=== PATIENT | female | born 1985 | race Caucasian/White ===

== ENCOUNTER 2022-03-31 08:03 | Inpatient (IN) ==
[2022-03-31] MEDS ORDERED: OXYTOCIN 30 UNITS/500 ML BAG IV PRN (10:31)
[2022-03-31] MEDS ORDERED: miSOPROStoL 200 MCG TAB PV ONE (10:31)
[2022-03-31] MEDS ORDERED: LIDOCAINE 1% LOCAL 20 ML VIAL INFIL PRN (10:31)
[2022-03-31 11:01] LABS: Hemoglobin 12.1 g/dl (12.0-16.0); Mean Corpuscular Hemoglobin 29.5 pg (25.0-34.0); Mean Corpuscular Hgb Conc 33.6 g/dL (32.0-36.0); Mean Corpuscular Volume 87.8 fL (80.0-100.0); Platelet Count 151 K/uL (130-400); RDW Coefficient of Variation 12.9 % (11.5-14.5); RDW Standard Deviation 41.7 fL (36.4-46.3); White Blood Count 7.88 K/ul (4.8-10.8)
[2022-03-31] MEDS ORDERED: ACETAMINOPHEN 325 MG TAB ONE (11:22)
--- NOTE | 2022-03-31 11:29 | History & Physical Report ---
Date of Service March 31, 2022 Assessment & Plan (1) demise before 20 weeks with retention of fetus: Plan: Cytotec for induction Admission and Anticipated Discharge Date Admission Date: March 31, 2022 History of Present Illness Chief Complaint: demise 15.3 weeks Primary Care Provider: DEBBIE PCP 36 F [id number] at 15.3 weeks found to have IUFD on routine ultrasound Allergies Allergy/AdvReac Type Severity Reaction Status Date / Time minocycline Allergy Intermediate RASH Verified 02/26/20 01:59 Home Medications Medication Instructions Recorded Confirmed Type vitamins-iron fumarate 65 1 tab PO DAILY 03/30/22 03/31/22 History mg iron-folic acid 1 mg tablet Patient History Surgical History History of bilateral tubal ligation 2014 History of cholecystectomy 2020 History of reversal of tubal ligation 10-22 Family History Grandmother (Maternal) Cancer Diabetes Hypertension Grandfather (Paternal) Cancer Social History Smoking Status: Former smoker Second Hand Exposure: Yes; Hx Alcohol Use: No Hx Substance Use: No Preferred Language: Guamanian Communication Ability: Effective Packaging Machine Operator Required: No Beliefs That Will Affect Care: None marital status: Single Current Living Situation: Family and Significant Other Other Information That Helps Us Care for You: No Feels Safe at Home: Yes Safety Concerns: Feels Safe At This Time Assistive Devices: None 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 followed by tuabl reversal Review of Systems All systems reviewed & are unremarkable except as noted in HPI & below Physical Exam Constitutional: WD/WN, vitals as above Respiratory: normal respiratory effort, lungs clear to auscultation Gastrointestinal (Abdomen): normal bowel sounds, soft, nontender, no hepatosplenomegaly Inspection/Auscultation: abdomen normal to inspection Musculoskeletal: Extremities: extremities normal to inspection Skin: no rashes, warm and dry Neurologic: patellar DTR's 2+ bilat, sensation intact Psychiatric: A+Ox3, euthymic affect Genitourinary: no vaginal lesions, no adnexal mass Manual OB Exam: + cervical dilation and + cervical effacement (cervix long/closed and thick) Cytotec 600 mcg placed vaginally Results & Data ([facility]) Vital Signs (Past 12 Hours) Vital Signs Temp Pulse Resp BP 03/31/22 08:46 36.8 C 20 03/31/22 08:19 36.8 C 67 20 109/60 Laboratory Results Laboratory Results - last 48 hr 03/31/22 10:49 WBC 7.88 RBC 4.10 Hgb 12.1 Hct 36.0 MCV 87.8 MCH 29.5 MCHC 33.6 RDW Std Deviation 41.7 RDW Coeff of Avelino 12.9 Plt Count 151 MPV 11.0 Code Status & VTE Plan VTE Prophylaxis Plan VTE Prophylaxis will be ordered: No
[2022-03-31] MEDS ORDERED: BUTORPHANOL TARTRATE 1 MG/ML VIAL ONE (15:31)
[2022-03-31] MEDS: LACTATED RINGER'S 1,000 ML IV PRN ×2 (15:37→23:15)
[2022-03-31] MEDS ORDERED: BUTORPHANOL TARTRATE 1 MG/ML VIAL IV PRN (18:00)
[2022-03-31] MEDS ORDERED: miSOPROStoL 200 MCG TAB PO SCH (18:00)
[2022-03-31] MEDS: ACETAMINOPHEN 325 MG TAB PO PRN (18:51)
[2022-03-31] MEDS ORDERED: miSOPROStoL 200 MCG TAB PV STA (21:43)
--- NOTE | 2022-03-31 22:27 | Delivery Summary ---
Vaginal Delivery Summary Date of Service March 31, 2022 Vaginal Delivery Summary Delivery Note Patient spontaneously delivered a stillborn male fetus 15.3 weeks. No obvious congenital malformations noted. Placenta not delivered and after waiting about 45 minutes still no placenta. Cytotec 600 mcg placed vaginally and no placenta delivered. Speculum exam done to try and see if placenta could be removed but numerous clots noted and unable to fully grasp placenta to remove safely. At this point I consented patient for D&C. Will call anesthesia stat to bring patient to OR for removal of placenta. Final sponge and instrument count are correct. EBL 350 ml. Mom stable.
[2022-03-31] MEDS ORDERED: CITRIC ACID/SODIUM CITRATE 15 ML UDC ONE (22:47)
[2022-03-31] MEDS ORDERED: ONDANSETRON INJ 2 MG/ML 2 ML VIAL ONE ×2 (23:10→23:52)
[2022-03-31] MEDS ORDERED: PROPOFOL IV EMULSION 10 MG/ML 20 ML VIAL IV ONE (23:10)
[2022-03-31] MEDS ORDERED: fentaNYL citrate 100 MCG/2 ML VIAL ONE (23:10)
--- NOTE | 2022-03-31 23:12 | Anesthesiology Consultation ---
Date of Service March 31, 2022 Assessment & Plan ASA ASA2E Proposed Anesthesia Anesthesia Type: General Risk / Benefits Reviewed With: PT / POA / Parent / Guardian, Accepts Plan and Informed Consent Obtained Additional Comments: pt 15 weeks s/p demise History Surgery Operation Date: 03/31/22 22:20 Proposed Procedures p Dilatation and Curettage - Ghanshyam Fulton MD Height/Weight Height: 5 ft 4 in Weight: 67.132 kg Allergies Allergy/AdvReac Type Severity Reaction Status Date / Time minocycline Allergy Intermediate RASH Verified 02/26/20 01:59 Medications Home Medications Medication Instructions Recorded Confirmed Last Taken vitamins-iron fumarate 65 1 tab PO DAILY 03/30/22 03/31/22 03/28/22 21:00 mg iron-folic acid 1 mg tablet Active Medications Generic Name Dose Route Start Last Admin Trade Name Freq PRN Reason Stop Dose Admin Acetaminophen 650 mg 03/31/22 11:24 03/31/22 18:51 Acetaminophen 325 Mg Tab PO 04/30/22 11:23 650 mg Q4H PRN Administration Headache or Pain Oxytocin 30 units in 500 mls @ 333.333 mls/hr 03/31/22 10:31 03/31/22 20:42 Pitocin IV 04/30/22 10:30 20 units/hr .Q1H30M PRN 333.3 mls/hr Bleeding Control Administration Protocol 20 UNITS/HR Lactated Ringer's 1,000 mls @ 125 mls/hr 03/31/22 10:31 03/31/22 15:37 Lr IV 04/02/22 10:30 125 mls/hr .Q8H PRN Administration L&D Protocol Protocol NPO Date Last Intake of Fluids: 03/31/22 Time Last Intake of Fluids: 18:00 Date Last Intake of Solids: 03/31/22 Time Last Intake of Solids: 00:00 Exercise / Class Metabolic Activity II 4-5 Yardwork/Stairs/Walk up hill Past Family History Family History Grandmother (Maternal) Cancer Diabetes Hypertension Grandfather (Paternal) Cancer Past Surgical History Surgical History History of bilateral tubal ligation 2014 History of cholecystectomy 2020 History of reversal of tubal ligation 3-22 Past Anesthesia History No Hx of Anesthesia Complications and No Family Hx of Anesthesia Complications History of PONV No Hx of PONV and No Hx of Motion Sickness Social History Smoking Status: Former smoker Hx Alcohol Use: No Hx Substance Use: No Review of Systems denies fever/cough/ colds/ chest pain/ SOB/ SHAYLEE denies SHAYLEE Physical Exam Vital Signs Last Vital Signs Temp 37.3 C 03/31/22 21:05 Pulse 88 03/31/22 23:00 Resp 16 03/31/22 21:05 BP 114/56 L 03/31/22 23:00 O2 Del Method 03/31/22 19:30 ENMT Mouth: no TMJ abnormality and no dentition abnormality Thyromental Distance: > or= 3.5 Finger Breadths Mallampati Class: II Neck neck extension not limited Respiratory normal respiratory effort; no respiratory distress Auscultation: lungs clear to auscultation bilaterally Cardiovascular Rate/Rhythm: regular rate and regular rhythm Neurologic moves all extremities Psychiatric Orientation: alert and oriented x 3 Testing Laboratory Results 03/31/22 10:49
[2022-03-31] MEDS ORDERED: ceFAZolin 2000MG 2,000 MG/15 ML SYR IV STA (23:21)
[2022-03-31] MEDS ORDERED: MIDAZOLAM HCL 1 MG/ML 2ML VIAL ONE (23:39)
[2022-03-31] MEDS ORDERED: ePHEDrine sulfate 50 MG/ML SYR ONE (23:41)
[2022-03-31] MEDS ORDERED: PHENYLEPHRINE 100MCG/ML 5ML SYR ONE (23:41)
[2022-03-31] MEDS ORDERED: miSOPROStoL 200 MCG TAB ONE ×2 (23:50→23:51)
[2022-03-31] MEDS ORDERED: OXYTOCIN 10 UNITS/ML VIAL ONE (23:52)
[2022-03-31] MEDS ORDERED: ceFAZolin 330 MG/ML 1 GM VIAL ONE (23:52)
[2022-04-01] MEDS ORDERED: miSOPROStoL 200 MCG TAB PR ONE (00:03)
--- NOTE | 2022-04-01 00:09 | Post Operative Brief Note ---
Immediate Post Op Note v1 Date of Surgery April 01, 2022 Pre & Post Diagnosis Operation Date: 03/31/22 22:20 <No data on this case meets the specified criteria> I identified the patient and participated in the time-out.: Yes Procedure Operation Date: 03/31/22 22:20 <No data on this case meets the specified criteria> Surgeon Ghanshyam Fulton MD Cloth Boil Off Machine Operator none Estimated Blood Loss 100 Findings Consistent with Post-Op Diagnosis products of conception Fluids LR Specimens products of conception Drains Todd Catheter Complications none Disposition Accompanied Patient To Recovery: Yes Overlapping Procedure I was present for: the critical portions of procedure. I was immediately available: during the entire case. Back up surgeon: was not required during procedure.
[2022-04-01] MEDS ORDERED: HYDROmorphone INJ 2 MG/ML SYR/VIAL IV PRN (00:12)
[2022-04-01] MEDS ORDERED: fentaNYL citrate 100 MCG/2 ML VIAL IV PRN (00:12)
[2022-04-01] MEDS ORDERED: ATROPINE SULFATE 0.1 MG/ML 10ML SYR IV PRN (00:12)
[2022-04-01] MEDS ORDERED: ONDANSETRON INJ 2 MG/ML 2 ML VIAL IV PRN (00:12)
[2022-04-01] MEDS ORDERED: ePHEDrine sulfate 50 MG/ML AMP IV PRN (00:12)
[2022-04-01] MEDS ORDERED: IBUPROFEN 600 MG TAB PO PRN (00:30)
[2022-04-01] MEDS ORDERED: ACETAMINOPHEN 325 MG TAB PO PRN (00:30)
[2022-04-01] MEDS ORDERED: bisacodyL 10 MG SUPP PR PRN (00:30)
[2022-04-01] MEDS ORDERED: BENZOCAINE 20% AER SPR 82.5 GM CAN EXT PRN (00:30)
[2022-04-01] MEDS ORDERED: DIPHTHERIA/TETANUS/PERTUSSIS 0.5 ML SYR/VIAL IM ONE (00:30)
[2022-04-01] MEDS ORDERED: HYDROCORTISONE ACETATE 25 MG SUPP PR PRN (00:30)
[2022-04-01] MEDS ORDERED: OXYTOCIN 30 UNITS/500 ML BAG IV PRN (00:30)
--- NOTE | 2022-04-01 00:45 | Anesthesiology Progress Note ---
Date of Service April 01, 2022 Anesthesia Post Procedure Vital Signs Vital Signs: Temp Pulse Resp BP Pulse Ox O2 Del Method 03/31/22 19:30 37.3 C 16 Room Air 03/31/22 08:46 36.8 C 20 04/01/22 00:41 84 100 04/01/22 00:40 85 106/59 L 04/01/22 00:36 93 H 100 04/01/22 00:35 93 H 110/58 L 04/01/22 00:31 110 H 97 04/01/22 00:27 113 H 92 04/01/22 00:26 113 H 99 04/01/22 00:21 94 H 100 04/01/22 00:20 90 113/60 04/01/22 00:13 113 H 113/69 04/01/22 00:11 117 H 112/82 03/31/22 23:00 88 03/31/22 23:00 114/56 L 03/31/22 22:45 96 H 03/31/22 22:45 115/65 03/31/22 22:30 75 03/31/22 22:30 108/60 03/31/22 22:15 93 H 03/31/22 22:15 108/68 03/31/22 22:00 78 03/31/22 22:00 106/58 L 03/31/22 21:45 70 03/31/22 21:45 109/56 L 03/31/22 21:30 82 03/31/22 21:30 116/66 03/31/22 21:15 87 03/31/22 21:15 113/67 03/31/22 21:05 16 03/31/22 21:05 37.3 C 16 03/31/22 21:01 85 03/31/22 21:01 115/62 03/31/22 20:30 72 03/31/22 20:30 116/66 03/31/22 19:44 81 03/31/22 19:44 116/75 03/31/22 15:33 77 03/31/22 15:33 20 123/74 03/31/22 13:23 86 03/31/22 13:23 101/57 L 03/31/22 08:19 36.8 C 67 20 109/60 Transfer of Care Handoff Completed per policy Notes Mental Status: alert / awake / arousable and participated in evaluation Patient Amnestic to Procedure: Yes Nausea / Vomiting: adequately controlled Pain: adequately controlled Airway Patency, RR, SpO2: stable & adequate BP & HR: stable & adequate Hydration State: stable & adequate Anesthetic Complications: no major complications apparent
[2022-04-01 01:28] LABS: Hematocrit (blood only) 30.6 % (34.1-44.9); Hemoglobin 10.1 g/dl (12.0-16.0); Mean Corpuscular Hemoglobin 29.6 pg (25.0-34.0); Mean Corpuscular Volume 89.7 fL (80.0-100.0); RDW Coefficient of Variation 12.7 % (11.5-14.5); RDW Standard Deviation 41.2 fL (36.4-46.3); Red Blood Count 3.41 M/uL (3.93-5.22); White Blood Count 10.05 K/ul (4.8-10.8)
[2022-04-01 02:03] LABS: Mean Platelet Volume 10.8 fL (9.4-12.3); Platelet Count 132 K/uL (130-400)
[2022-04-01 02:25] LABS: Platelet Estimate Normal (Normal)
--- NOTE | 2022-04-01 07:19 | Operative Report (OR) ---
DATE OF SURGERY: 04/01/2022. PREOPERATIVE DIAGNOSIS: Retained placenta. POSTOPERATIVE DIAGNOSIS: Retained placenta. PROCEDURE: Dilation and curettage. SURGEON: Ghanshyam Fulton MD. MECHANICAL SYSTEMS CONTROL ENGINEER: None. COMPLICATIONS: None. FINDINGS: Products of conception. DRAINS: Todd. ESTIMATED BLOOD LOSS: 100 mL. TOTAL FLUIDS: 900 mL. CLINICAL HISTORY: The patient is a 36-year-old female, para 5-0-1-5, who presented with 15.3-week in trauterine demise. The patient received Cytotec x2 doses and then delivered spontaneously a st illborn male. Placenta was not delivered. The patient continued to have some bleeding. An attempt was made to remove the placenta with a ring forceps, which was not successful. Some tissue was remov ed and large clots were evacuated. The patient was brought to the OR for a D and C. DESCRIPTION OF PROCEDURE: Under satisfactory general anesthesia, the patient was prepped and draped in the usual sterile fashion. Timeout was called. Antibiotics were given. Weighted speculum was pl aced in the posterior vault of the vagina. Single Allis clamp was placed on the anterior lip of the cervix. Cervix was then dilated with Hegar dilators and then sharp curette was then used curetting o ut minimal amounts of tissue, which was submitted to pathology. No active bleeding was noted. Pitoc in was started in the IV. All remaining instruments were accounted for. The remaining instruments w ere then removed. At the end of the procedure, 1000 mcg of Cytotec was placed rectally to control ble eding. The patient was then placed supine on a stretcher at the end of the procedure and taken to re covery room in stable condition. Job ID: [id number]
--- NOTE | 2022-04-01 07:40 | Obstetrical Progress Note ---
Date of Service April 01, 2022 Assessment & Plan Admission and Anticipated Discharge Date Admission Date: March 31, 2022 Subjective Patient is seen and examined. She feels well, no complaints. Ambulating without dizziness Voiding without difficulty Tolerating regular diet with out N&V Bleeding is minimal No fever/ chills/ CP/ SOB/ dizziness/N&V/ Leg pain Vital Signs Temp Pulse Resp BP Pulse Ox 04/01/22 06:24 36.6 C 16 04/01/22 07:38 88 102/56 L 04/01/22 06:21 82 96/52 L 04/01/22 04:41 84 96 04/01/22 04:36 101 H 96 04/01/22 04:31 86 96 04/01/22 04:27 86 95/53 L 04/01/22 04:26 85 96 04/01/22 04:21 100 H 97 04/01/22 04:16 89 95 04/01/22 04:11 91 H 96 04/01/22 04:06 88 96 04/01/22 04:01 90 96 04/01/22 03:56 101 H 96 04/01/22 03:57 95 H 95/50 L 04/01/22 03:51 98 H 96 04/01/22 03:46 96 H 96 04/01/22 03:41 88 96 04/01/22 03:36 84 96 04/01/22 03:31 87 96 04/01/22 03:26 95 H 96 04/01/22 03:27 93 H 96/51 L 04/01/22 03:21 92 H 96 04/01/22 03:16 97 H 96 04/01/22 03:11 97 H 96 04/01/22 03:06 93 H 96 04/01/22 03:01 90 96 04/01/22 02:57 90 96/51 L 04/01/22 02:56 91 H 96 04/01/22 02:51 93 H 96 04/01/22 02:46 87 96 04/01/22 02:41 88 95 04/01/22 02:36 83 95 04/01/22 02:31 92 H 96 04/01/22 02:26 109 H 97 04/01/22 02:21 85 95 04/01/22 02:20 89 100/57 L 04/01/22 02:16 94 H 97 04/01/22 02:11 88 98 04/01/22 02:10 84 98/57 L 04/01/22 02:06 96 H 98 04/01/22 02:01 94 H 98 04/01/22 02:00 93 H 100/56 L 04/01/22 01:56 85 98 04/01/22 01:51 94 H 98 04/01/22 01:50 96 H 98/53 L 04/01/22 01:46 98 H 100 04/01/22 01:41 107 H 100 04/01/22 01:40 89 100/57 L 04/01/22 01:36 85 98 04/01/22 01:31 84 100 04/01/22 01:30 85 100/55 L 04/01/22 01:26 93 H 99 04/01/22 01:21 88 100 04/01/22 01:20 89 104/59 L 04/01/22 01:16 95 H 100 04/01/22 01:11 75 96 04/01/22 01:10 75 102/50 L 04/01/22 01:06 69 97 04/01/22 01:01 70 97 04/01/22 01:00 71 104/57 L 04/01/22 00:56 85 99 04/01/22 00:51 79 97 04/01/22 00:50 77 103/59 L 04/01/22 00:46 83 98 04/01/22 00:41 84 100 04/01/22 00:40 85 106/59 L 04/01/22 00:36 93 H 100 04/01/22 00:35 93 H 110/58 L 04/01/22 00:31 110 H 97 04/01/22 00:27 113 H 92 04/01/22 00:26 113 H 99 04/01/22 00:21 94 H 100 04/01/22 00:20 90 113/60 04/01/22 00:13 113 H 113/69 04/01/22 00:11 117 H 112/82 03/31/22 23:00 88 03/31/22 23:00 114/56 L 03/31/22 22:45 96 H 03/31/22 22:45 115/65 03/31/22 22:30 75 03/31/22 22:30 108/60 03/31/22 22:15 93 H 03/31/22 22:15 108/68 03/31/22 22:00 78 03/31/22 22:00 106/58 L 03/31/22 21:45 70 03/31/22 21:45 109/56 L 03/31/22 21:30 82 03/31/22 21:30 116/66 03/31/22 21:15 87 03/31/22 21:15 113/67 03/31/22 21:05 16 03/31/22 21:05 37.3 C 16 03/31/22 21:01 85 03/31/22 21:01 115/62 03/31/22 20:30 72 03/31/22 20:30 116/66 03/31/22 19:44 81 03/31/22 19:44 116/75 Lab Results 03/31/22 04/01/22 Range/Units 10:49 00:38 WBC 7.88 10.05 (4.8-10.8) K/ul RBC 4.10 3.41 L (3.93-5.22) M/uL Hgb 12.1 10.1 L (12.0-16.0) g/dl Hct 36.0 30.6 L (34.1-44.9) % MCV 87.8 89.7 (80.0-100.0) fL MCH 29.5 29.6 (25.0-34.0) pg MCHC 33.6 33.0 (32.0-36.0) g/dL RDW Std Deviation 41.7 41.2 (36.4-46.3) fL RDW Coeff of Avelino 12.9 12.7 (11.5-14.5) % Plt Count 151 132 (130-400) K/uL MPV 11.0 10.8 (9.4-12.3) fL Platelet Estimate Normal (Normal) PE: General: Alert, orientedx3, NAD Abd: soft, NT, fundus firm, below Umbilicus Perineum intact, Lochia rubra minimal Ext; NT, no edema AP: 36 yo s/p for IUFD, PP D&C for retained placenta, ppd# 1 VSS Afebrile doing well Continue routine care All questions were answered Discussed when to call D/C home , f/u in office Results & Data ([facility]) Vital Signs (Past 12 Hours) Vital Signs Temp Pulse Resp BP Pulse Ox 04/01/22 06:24 36.6 C 16 04/01/22 06:21 82 96/52 L 04/01/22 04:41 84 96 04/01/22 04:36 101 H 96 04/01/22 04:31 86 96 04/01/22 04:27 86 95/53 L 04/01/22 04:26 85 96 04/01/22 04:21 100 H 97 04/01/22 04:16 89 95 04/01/22 04:11 91 H 96 04/01/22 04:06 88 96 04/01/22 04:01 90 96 04/01/22 03:56 101 H 96 04/01/22 03:57 95 H 95/50 L 04/01/22 03:51 98 H 96 04/01/22 03:46 96 H 96 04/01/22 03:41 88 96 04/01/22 03:36 84 96 04/01/22 03:31 87 96 04/01/22 03:26 95 H 96 04/01/22 03:27 93 H 96/51 L 04/01/22 03:21 92 H 96 04/01/22 03:16 97 H 96 04/01/22 03:11 97 H 96 04/01/22 03:06 93 H 96 04/01/22 03:01 90 96 04/01/22 02:57 90 96/51 L 04/01/22 02:56 91 H 96 04/01/22 02:51 93 H 96 04/01/22 02:46 87 96 04/01/22 02:41 88 95 04/01/22 02:36 83 95 04/01/22 02:31 92 H 96 04/01/22 02:26 109 H 97 04/01/22 02:21 85 95 04/01/22 02:20 89 100/57 L 04/01/22 02:16 94 H 97 04/01/22 02:11 88 98 04/01/22 02:10 84 98/57 L 04/01/22 02:06 96 H 98 04/01/22 02:01 94 H 98 04/01/22 02:00 93 H 100/56 L 04/01/22 01:56 85 98 04/01/22 01:51 94 H 98 04/01/22 01:50 96 H 98/53 L 04/01/22 01:46 98 H 100 04/01/22 01:41 107 H 100 04/01/22 01:40 89 100/57 L 04/01/22 01:36 85 98 04/01/22 01:31 84 100 04/01/22 01:30 85 100/55 L 04/01/22 01:26 93 H 99 04/01/22 01:21 88 100 04/01/22 01:20 89 104/59 L 04/01/22 01:16 95 H 100 04/01/22 01:11 75 96 04/01/22 01:10 75 102/50 L 04/01/22 01:06 69 97 04/01/22 01:01 70 97 04/01/22 01:00 71 104/57 L 04/01/22 00:56 85 99 04/01/22 00:51 79 97 04/01/22 00:50 77 103/59 L 04/01/22 00:46 83 98 04/01/22 00:41 84 100 04/01/22 00:40 85 106/59 L 04/01/22 00:36 93 H 100 04/01/22 00:35 93 H 110/58 L 04/01/22 00:31 110 H 97 04/01/22 00:27 113 H 92 04/01/22 00:26 113 H 99 04/01/22 00:21 94 H 100 04/01/22 00:20 90 113/60 04/01/22 00:13 113 H 113/69 04/01/22 00:11 117 H 112/82 03/31/22 23:00 88 03/31/22 23:00 114/56 L 03/31/22 22:45 96 H 03/31/22 22:45 115/65 03/31/22 22:30 75 03/31/22 22:30 108/60 03/31/22 22:15 93 H 03/31/22 22:15 108/68 03/31/22 22:00 78 03/31/22 22:00 106/58 L 03/31/22 21:45 70 08/29/22 21:45 109/56 L 03/31/22 21:30 82 03/31/22 21:30 116/66 03/31/22 21:15 87 03/31/22 21:15 113/67 03/31/22 21:05 16 03/31/22 21:05 37.3 C 16 03/31/22 21:01 85 03/31/22 21:01 115/62 03/31/22 20:30 72 03/31/22 20:30 116/66 03/31/22 19:44 81 03/31/22 19:44 116/75
[2022-04-01] MEDS ORDERED: FERROUS SULFATE 325 MG TAB PO SCH (08:00)
[2022-04-01] MEDS ORDERED: PRENATAL VITAMIN 1 TAB PO SCH (08:00)
[2022-04-01] MEDS ORDERED: DOCUSATE SODIUM 100 MG CAP PO SCH (08:00)
[2022-04-01] MEDS: ACETAMINOPHEN 325 MG TAB PO PRN (08:05)
[2022-04-01] MEDS ORDERED: NON-FORMULARY MEDICATION (Prenatal Vit-Iron Fum-Folic Ac 65 mg iron- 1 mg Tablet) PO SCH (09:00)
[2022-04-02] MEDS ORDERED: bisacodyL 5 MG TABEC PO SCH (20:00)
== END 2022-04-01 08:50 | disposition home or self-care (01) | DRG 770 ==
LOC: 4S1 08:03

== ENCOUNTER 2022-04-30 14:00 | Inpatient (IN) ==
[2022-04-30] MEDS ORDERED: SODIUM CHLORIDE 0.9% 1000ML 1,000 ML IV ONE (14:16)
[2022-04-30] MEDS ORDERED: ACETAMINOPHEN 1,000 MG/100 ML VIAL IV STA (14:16)
[2022-04-30 15:18] LABS: Basophils # (auto) 0.03 K/uL (0-0.2); Basophils % (auto) 0.3 %; Eosinophils # (auto) 0.03 K/uL (0-0.50); Eosinophils % (auto) 0.3 %; Hematocrit (blood only) 33.3 % (34.1-44.9); Hemoglobin 10.9 g/dl (12.0-16.0); Immature Granulocytes # (auto) 0.04 K/uL (0.00-0.02); Immature Granulocytes % (auto) 0.4 %; Lymphocytes # (auto) 1.23 K/uL (1.2-3.4); Lymphocytes % (auto) 11.4 %; Mean Corpuscular Hemoglobin 29.9 pg (25.0-34.0); Mean Corpuscular Hgb Conc 32.7 g/dL (32.0-36.0); Mean Corpuscular Volume 91.2 fL (80.0-100.0); Mean Platelet Volume 11.8 fL (9.4-12.3); Monocytes # (auto) 0.68 K/uL (0.24-0.82); Monocytes % (auto) 6.3 %; Neutrophils # (auto) 8.77 K/uL (1.4-6.5); Neutrophils % (auto) 81.3 %; Platelet Count 149 K/uL (130-400); RDW Coefficient of Variation 12.6 % (11.5-14.5); Red Blood Count 3.65 M/uL (3.93-5.22); White Blood Count 10.78 K/ul (4.8-10.8)
[2022-04-30 15:34] LABS: Appearance Urine Clear (Clear); Bacteria Urine Automated Negative (Negative); Bilirubin Urine Negative (Negative); Blood Urine 2+ (Negative); Color Urine Yellow; Epithelial Cell Urine Auto 20-30 /lpf (0-5); Glucose Urine UA Negative (Negative); Ketones Urine Negative (Negative); Leukocyte Esterase Urine 1+ (Negative); Nitrite Urine Negative (Negative); Protein Urine Negative (Negative); Specific Gravity Urine 1.018 (1.000-1.030); Urobilinogen Urine Negative (Negative); WBC Urine Automated >30 /hpf (0-5); pH Urine 8.5 (4.5-7.5)
[2022-04-30 15:35] LABS: Partial Thromboplastin Time 28.1 Seconds (21.0-31.0); Prothrombin Time 11.1 Seconds (9.0-12.0)
[2022-04-30 15:39] LABS: Albumin Level 4.1 gm/dl (3.4-5.0); BUN Creatinine Ratio 9.6 (10-20); Bilirubin Direct 0.2 mg/dl (0-0.2); Bilirubin,Total 0.5 mg/dl (0.2-1.0); Calcium 8.9 mg/dl (8.5-10.1); Creatinine Clr Calc Pharmacy 117.3 ml/min; Est GFR (African American) 122.8 ml/min; Potassium 3.2 mmol/L (3.5-5.1); Total Protein 7.2 gm/dl (6.0-8.3)
--- NOTE | 2022-04-30 15:47 | Emergency Department Note ---
History of Present Illness General Chief complaint: Referred by Doctor Stated complaint: FEVER, ABDOMINAL PAIN, SENT FROM [facility] Time Seen by Provider: 04/30/22 14:11 History of Present Illness Provider complaint: Fever abdominal pain Onset (ago): day(s) 1 Location: abdomen Radiation: non-radiation Severity: moderate Pain Consistency: + constant Maximum Pain Intensity: 7 Current Pain Intensity: 7 Quality: + stabbing, + aching, + sharp and + dull Relieved By: + none Exacerbated By: + none Associated symptoms: + fever/chills; no chest pain, no cough, no headaches, no rash, no seizure, no shortness of breath or no syncope 36-year-old female presents emergency department with fever and abdominal pain. Patient reports her symptoms began yesterday. Patient reports she was having pain in her left lower quadrant. Patient reports she recently had a miscarriage and a recent D&C done by [facility]. Patient states she went to [place] emergency department yesterday where they did an ultrasound and found her uterin e lining to be thickened and inflamed. Patient reports she has been having vaginal bleeding since having her miscarriage. The patient states that she is now passing tissue from her vagina. Patient states she has been sexually active since having her miscarriage and is not sure if she is currently . Home Medications Medication Instructions Recorded Confirmed Type vitamins-iron fumarate 65 1 tab PO DAILY 03/30/22 04/30/22 History mg iron-folic acid 1 mg tablet docusate sodium 100 mg capsule 100 mg PO BID 04/30/22 04/30/22 History (Colace) Allergies Allergy/AdvReac Type Severity Reaction Status Date / Time minocycline Allergy Intermediate RASH Verified 02/26/20 01:59 Past Med/Surg History Medical History demise before 20 weeks with retention of fetus Surgical History History of bilateral tubal ligation 2014 History of cholecystectomy 2020 History of dilatation and curettage History of reversal of tubal ligation 10-22 Family History Grandmother (Maternal) Cancer Diabetes Hypertension Grandfather (Paternal) Cancer Social History Smoking Status: Never smoker Second Hand Exposure: Yes; Hx Alcohol Use: No Hx Substance Use: No Preferred Language: Kinyarwanda Communication Ability: Effective Meat Boner And Slicer Required: No Beliefs That Will Affect Care: None marital status: Single Current Living Situation: Family and Significant Other Feels Safe at Home: Yes Assistive Devices: None Review of Systems A total of 10 systems reviewed and were otherwise negative Physical Exam Vital Signs Vital Signs - 24 hr 04/30/22 14:10 04/30/22 17:00 04/30/22 17:00 Temperature 38.6 C H Temperature Source Oral Pulse Rate 98 H 70 Pulse Rate [Finger] 80 Pulse Rhythm Regular Pulse Rhythm [Finger] Regular Pulse Strength [Finger] Normal Respiratory Rate 16 19 19 Respiratory Effort / Characteristics Non-Labored Respiratory Depth Normal Normal Respiratory Pattern Regular Blood Pressure 131/84 Blood Pressure [Left Arm] Blood Pressure [Right Arm] 138/84 Blood Pressure Mean 99 Blood Pressure Mean [Left Arm] Blood Pressure Mean [Right Arm] 102 Blood Pressure Position [Left Arm] Blood Pressure Position [Right Arm] Lying Pulse Oximetry 100 99 99 Oxygen Delivery Method Room Air Room Air Room Air Sepsis Recent Fever Within 48 Hours Yes Sepsis New/Unexplained Change in Mental Status No Sepsis Action Taken by Nursing No Action Required 04/30/22 17:57 04/30/22 18:03 Temperature 37.2 C Temperature Source Oral Pulse Rate Pulse Rate [Finger] Pulse Rhythm Pulse Rhythm [Finger] Pulse Strength [Finger] Respiratory Rate 18 Respiratory Effort / Characteristics Respiratory Depth Respiratory Pattern Blood Pressure Blood Pressure [Left Arm] 118/65 Blood Pressure [Right Arm] Blood Pressure Mean Blood Pressure Mean [Left Arm] 82 Blood Pressure Mean [Right Arm] Blood Pressure Position [Left Arm] Semi-fowlers Blood Pressure Position [Right Arm] Pulse Oximetry 99 Oxygen Delivery Method Room Air Room Air Sepsis Recent Fever Within 48 Hours Sepsis New/Unexplained Change in Mental Status Sepsis Action Taken by Nursing Physical Exam GENERAL: She is oriented to person, place, and time. She appears well-developed and well-nourished. She does not appear distressed. HENT: Exam performed. -Head: Normocephalic and atraumatic. -Right Ear: External ear normal. No mastoid tenderness. -Left Ear: External ear normal. No mastoid tenderness. -Mouth/Throat: The oropharynx is clear and moist. No trismus in the jaw. No dental abscesses or uvula swelling. No oropharyngeal exudate or tonsillar abscesses. EYES: Conjunctivae and EOM are normal. Pupils are equal, round, and reactive to light. Right eye exhibits no discharge. Left eye exhibits no discharge. No scleral icterus. NECK: Normal range of motion. Neck supple. No JVD present. No spinous process tenderness present. No carotid bruit present. No rigidity. No tracheal deviation and normal range of motion present. No Brudzinski's sign and no Kernig's sign noted. CV: Normal rate, regular rhythm, normal heart sounds and intact distal pulses. There is no peripheral edema. Palpable radial pulses bue. PULM/CHEST: Effort normal and breath sounds normal. No respiratory distress. No stridor. She has no wheezes. She has no rales. -Chest Wall: She exhibits no tenderness. ABD: The abdomen is soft. Bowel sounds are normal. She has no distension. No mass is present. There is tenderness to palpation of the left lower quadrant. There is no rebound, no guarding, no Reyes's sign and no tenderness at McBurney's point. Rovsig negative MUSC/SKEL: Normal range of motion. There is no peripheral edema, tenderness or deformity. LYMPH: No cervical adenopathy. NEURO: She is alert and oriented to person, place, and time. She has normal strength. No cranial nerve deficit or sensory deficit. Coordination and gait normal. GCS eye subscore is 4. GCS verbal subscore is 5. GCS motor subscore is 6. Cerebellar tests wnl. SKIN: Skin is warm and dry. She is not diaphoretic. PSYCH: She has a normal mood and affect. Behavior is normal. Judgment and thought content normal. Course Course 1411: The patient was evaluated in room C11. A complete history and physical exam was performed Cardiac monitoring: An order was placed for continuous cardiac monitoring. The monitor shows a rate of 90 with sinus rhythm EMR reviewed. Patient had a D&C done by Dr. Paige on April 01, 2022 for retained placenta. 1426: Spoke with Dr. Sarah Simmons MECHANICAL CAD DESIGNER both he and I feel it is unlikely that the patient still has retained products for almost a month now. Will obtain lab work and CT imaging. 1708: Labs show hemoglobin 10.9. Potassium 3.2. Exam done with female nursing senior telecommunications consultant Clary at bedside and assisting showed no vaginal bleeding but did show some scant vaginal discharge. Patient reports she has not concerned about STD. CT imaging shows enlarged heterogeneous uterus with hyperdense material in the endometrial canal suggestive of blood clot. Discussed the case with Dr. Smith who states he will be down to evaluate the patient. 1738: Nursing states that the patient is being taken to the OR with Dr. Smith Administered Medications Discontinued Medications Acetaminophen (Ofirmev) 1,000 mg in 100 mls @ 400 mls/hr IV NOW STA Stop: 04/30/22 14:30 Last Infusion: 04/30/22 15:55 Dose: 0 mls/hr Documented By: Admin: 04/30/22 15:07 Dose: 400 mls/hr Documented By: DONA(2) Sodium Chloride (Nss 1000ml) 1,000 mls @ 999 mls/hr IV .Q1H1M ONE Stop: 04/30/22 15:16 Last Infusion: 04/30/22 15:53 Dose: 0 mls/hr Documented By: Admin: 04/30/22 15:07 Dose: 999 mls/hr Documented By: DONA(2) Ioversol (Ioversol 350 Mg 100ml Prefilled Syringe) 91 ml IV ONCE ONE Stop: 04/30/22 16:08 Last Admin: 04/30/22 16:08 Dose: 91 ml Documented By: SAMANTA Medical Decision Making Laboratory Data Result diagrams: 04/30/22 15:00 04/30/22 15:00 Lab Results 04/30/22 04/30/22 04/30/22 Range/Units 15:00 15:00 15:00 WBC 10.78 (4.8-10.8) K/ul RBC 3.65 L (3.93-5.22) M/uL Hgb 10.9 L (12.0-16.0) g/dl Hct 33.3 L (34.1-44.9) % MCV 91.2 (80.0-100.0) fL MCH 29.9 (25.0-34.0) pg MCHC 32.7 (32.0-36.0) g/dL RDW Std Deviation 42.0 (36.4-46.3) fL RDW Coeff of Avelino 12.6 (11.5-14.5) % Plt Count 149 (130-400) K/uL MPV 11.8 (9.4-12.3) fL Immature Gran % (Auto) 0.4 % Neut % (Auto) 81.3 % Lymph % (Auto) 11.4 % [place] % (Auto) 6.3 % Eos % (Auto) 0.3 % Baso % (Auto) 0.3 % Neut # (Auto) 8.77 H (1.4-6.5) K/uL Lymph # (Auto) 1.23 (1.2-3.4) K/uL [place] # (Auto) 0.68 (0.24-0.82) K/uL Eos # (Auto) 0.03 (0-0.50) K/uL Baso # (Auto) 0.03 (0-0.2) K/uL Immature Gran # (Auto) 0.04 H (0.00-0.02) K/uL PT 11.1 (9.0-12.0) Seconds INR 1.0 (0.9-1.1) APTT 28.1 (21.0-31.0) Seconds PTT Ratio 1.0 Sodium 137 (136-145) mmol/L Potassium 3.2 L (3.5-5.1) mmol/L Chloride 106 (98-107) mmol/L Carbon Dioxide 22 (21-32) mmol/L Anion Gap 9 (3-11) BUN 7 (6-23) mg/dl Creatinine 0.73 (0.6-1.2) mg/dl Est Cr Clr Drug Dosing 117.3 ml/min Est GFR ( Amer) 122.8 ml/min Est GFR (Non-Af Amer) 106.0 ml/min BUN/Creatinine Ratio 9.6 L (10-20) Glucose 95 (70-99(Fasting)) mg/dl Calcium 8.9 (8.5-10.1) mg/dl Total Bilirubin 0.5 (0.2-1.0) mg/dl Direct Bilirubin 0.2 (0-0.2) mg/dl AST 16 (13-39) U/L ALT 15 (7-52) U/L Alkaline Phosphatase 57 (34-104) U/L Total Protein 7.2 (6.0-8.3) gm/dl Albumin 4.1 (3.4-5.0) gm/dl Lipase 5 L (11-82) U/L Urine Color Urine Appearance (Clear) Urine pH (4.5-7.5) Ur Specific [place] (1.000-1.030) Urine Protein (Negative) Urine Glucose (UA) (Negative) Urine Ketones (Negative) Urine Blood (Negative) Urine Nitrite (Negative) Urine Bilirubin (Negative) Urine Urobilinogen (Negative) Ur Leukocyte Esterase (Negative) Urine WBC (Auto) (0-5) /hpf Urine RBC (Auto) (0-4) /hpf U Hyaline Cast (Auto) (0-5) /lpf U Epithel Cells (Auto) (0-5) /lpf Urine Bacteria (Auto) (Negative) POC Ur Test (NEG) 04/30/22 04/30/22 Range/Units 15:00 15:00 WBC (4.8-10.8) K/ul RBC (3.93-5.22) M/uL Hgb (12.0-16.0) g/dl Hct (34.1-44.9) % MCV (80.0-100.0) fL MCH (25.0-34.0) pg MCHC (32.0-36.0) g/dL RDW Std Deviation (36.4-46.3) fL RDW Coeff of Avelino (11.5-14.5) % Plt Count (130-400) K/uL MPV (9.4-12.3) fL Immature Gran % (Auto) % Neut % (Auto) % Lymph % (Auto) % [place] % (Auto) % Eos % (Auto) % Baso % (Auto) % Neut # (Auto) (1.4-6.5) K/uL Lymph # (Auto) (1.2-3.4) K/uL [place] # (Auto) (0.24-0.82) K/uL Eos # (Auto) (0-0.50) K/uL Baso # (Auto) (0-0.2) K/uL Immature Gran # (Auto) (0.00-0.02) K/uL PT (9.0-12.0) Seconds INR (0.9-1.1) APTT (21.0-31.0) Seconds PTT Ratio Sodium (136-145) mmol/L Potassium (3.5-5.1) mmol/L Chloride (98-107) mmol/L Carbon Dioxide (21-32) mmol/L Anion Gap (3-11) BUN (6-23) mg/dl Creatinine (0.6-1.2) mg/dl Est Cr Clr Drug Dosing ml/min Est GFR ( Amer) ml/min Est GFR (Non-Af Amer) ml/min BUN/Creatinine Ratio (10-20) Glucose (70-99(Fasting)) mg/dl Calcium (8.5-10.1) mg/dl Total Bilirubin (0.2-1.0) mg/dl Direct Bilirubin (0-0.2) mg/dl AST (13-39) U/L ALT (7-52) U/L Alkaline Phosphatase (34-104) U/L Total Protein (6.0-8.3) gm/dl Albumin (3.4-5.0) gm/dl Lipase (11-82) U/L Urine Color Yellow Urine Appearance Clear (Clear) Urine pH 8.5 H (4.5-7.5) Ur Specific [place] 1.018 (1.000-1.030) Urine Protein Negative (Negative) Urine Glucose (UA) Negative (Negative) Urine Ketones Negative (Negative) Urine Blood 2+ H (Negative) Urine Nitrite Negative (Negative) Urine Bilirubin Negative (Negative) Urine Urobilinogen Negative (Negative) Ur Leukocyte Esterase 1+ H (Negative) Urine WBC (Auto) >30 H (0-5) /hpf Urine RBC (Auto) 10-30 H (0-4) /hpf U Hyaline Cast (Auto) 1-5 (0-5) /lpf U Epithel Cells (Auto) 20-30 H (0-5) /lpf Urine Bacteria (Auto) Negative (Negative) POC Ur Test NEG (NEG) Imaging Data Radiologist's Impression: Abdomen/Pelvis CT 04/30/22 14:[address] WITH IV CONTRAST CT DOSE: 282.77 mGy.cm HISTORY: Acute left lower quadrant abdominal pain. Vaginal bleeding with recent demise, D&C. fever llq pain TECHNIQUE: Multiaxial CT images of the abdomen and pelvis were performed following the IV administration of 91 cc of Optiray, A dose lowering technique was utilized adhering to the principles of ALARA. COMPARISON STUDY: Pelvic ultrasound 03/30/2022 FINDINGS: Minimal dependent subsegmental bibasilar atelectasis. There is no pneumatosis or pneumoperitoneum. Unremarkable spleen, pancreas and adrenal glands. Cholecystectomy. Unremarkable liver. Patency of the hepatic and portal veins. Unremarkable kidneys. Exophytic subcentimeter hypodense lesion of the superior pole right kidney is too small to characterize, likely a cyst. No hydronephrosis. Unremarkable urinary bladder. Enlarged heterogeneous uterus. Endometrium is distended and filled with hyperdense material measuring up to approximately 5 cm. There is mild congestion of the pelvic vasculature with trace free pelvic fluid. Aorta and IVC are unremarkable. There is no lymphadenopathy identified. No bowel obstruction or bowel wall thickening. Normal appendix. Unremarkable soft tissues. No acute fracture. IMPRESSION: 1. No bowel obstruction or bowel wall thickening. Normal appendix. 2. Enlarged heterogeneous uterus in this patient with history of reported recent D&C. Hyperdense material within the endometrial canal is suggestive of blood clot. Follow-up with serial quantitative beta hCG recommended to exclude retained products of conception. ACT 112: Negative or not required by law. The above report was generated using voice recognition software. It may contain grammatical, syntax or spelling errors. Electronically signed by: Rafal Greene M.D. 04/30/2022 4:24 PM [facility] Narrative 1411: The patient was evaluated in room C11. A complete history and physical exam was performed Cardiac monitoring: An order was placed for continuous cardiac monitoring. The monitor shows a rate of 90 with sinus rhythm EMR reviewed. Patient had a D&C done by Dr. Paige on April 01, 2022 for retained placenta. 1426: Spoke with Dr. Sarah Simmons MECHANICAL CAD DESIGNER both he and I feel it is unlikely that the patient still has retained products for almost a month now. Will obtain lab work and CT imaging. 1708: Labs show hemoglobin 10.9. Potassium 3.2. Exam done with female nursing senior telecommunications consultant Clary at bedside and assisting showed no vaginal bleeding but did show some scant vaginal discharge. Patient reports she has not concerned about STD. CT imaging shows enlarged heterogeneous uterus with hyperdense material in the endometrial canal suggestive of blood clot. Discussed the case with Dr. Smith who states he will be down to evaluate the patient. 1738: Nursing states that the patient is being taken to the OR with Dr. Smith Impression & Plan Retained products of conception Discharge Plan Visit Data Chief Complaint: Referred by Doctor Stated Complaint: FEVER, ABDOMINAL PAIN, SENT FROM [facility] ED Provider: Ismael Tello Discharge Problem: Retained products of conception Patient Disposition: Admitted As Inpatient Discharge Instructions Interventions: ED Discharge Assessment Last Done: 04/30/22 17:57 Forms Stand Alone Forms: [facility] Design A Prescriptions Prescriptions: No Action docusate sodium [Colace] 100 mg Capsule 100 mg PO BID vit-iron fum-folic ac 65 mg iron- 1 mg Tablet 1 tab PO DAILY Referrals Referrals: Oleksandr Rivas MD [Primary Care Provider] -
[2022-04-30] MEDS ORDERED: IOVERSOL 350 MG 100mL Prefilled Syringe IV ONE (16:07)
--- NOTE | 2022-04-30 16:26 | CT Scan Report ---
ABDOMEN AND PELVIS CT WITH IV CONTRAST CT DOSE: 282.77 mGy.cm HISTORY: Acute left lower quadrant abdominal pain. Vaginal bleeding with recent demise, D&C. fe broderick llq pain TECHNIQUE: Multiaxial CT images of the abdomen and pelvis were performed following the IV administrat ion of 91 cc of Optiray, A dose lowering technique was utilized adhering to the principles of ALARA. COMPARISON STUDY: Pelvic ultrasound 03/30/2022 FINDINGS: Minimal dependent subsegmental bibasilar atelectasis. There is no pneumatosis or pneumoperi toneum. Unremarkable spleen, pancreas and adrenal glands. Cholecystectomy. Unremarkable liver. Patenc y of the hepatic and portal veins. Unremarkable kidneys. Exophytic subcentimeter hypodense lesion of the superior pole right kidney is t oo small to characterize, likely a cyst. No hydronephrosis. Unremarkable urinary bladder. Enlarged he terogeneous uterus. Endometrium is distended and filled with hyperdense material measuring up to appr oximately 5 cm. There is mild congestion of the pelvic vasculature with trace free pelvic fluid. Aort a and IVC are unremarkable. There is no lymphadenopathy identified. No bowel obstruction or bowel wall thickening. Normal appendix. Unremarkable soft tissues. No acute f racture. IMPRESSION: 1. No bowel obstruction or bowel wall thickening. Normal appendix. 2. Enlarged heterogeneous uterus in this patient with history of reported recent D&C. Hyperdense mate rial within the endometrial canal is suggestive of blood clot. Follow-up with serial quantitative bet a hCG recommended to exclude retained products of conception. ACT 112: Negative or not required by law. The above report was generated using voice recognition software. It may contain grammatical, syntax o r spelling errors. Electronically signed by: Rafal Greene M.D. 04/30/2022 4:24 PM
[2022-04-30] MEDS ORDERED: ATROPINE SULFATE 0.1 MG/ML 10ML SYR IV PRN (17:30)
[2022-04-30] MEDS ORDERED: fentaNYL citrate 100 MCG/2 ML VIAL IV PRN (17:30)
[2022-04-30] MEDS ORDERED: ONDANSETRON INJ 2 MG/ML 2 ML VIAL IV PRN ×2 (17:30→19:20)
[2022-04-30] MEDS ORDERED: fentaNYL citrate 100 MCG/2 ML VIAL ONE (17:30)
[2022-04-30] MEDS ORDERED: LIDOCAINE 2% 2 ML VIAL/AMP(20MG/ML) INFIL ONE (17:30)
[2022-04-30] MEDS ORDERED: MIDAZOLAM HCL 1 MG/ML 2ML VIAL ONE (17:30)
[2022-04-30] MEDS ORDERED: ONDANSETRON INJ 2 MG/ML 2 ML VIAL ONE (17:30)
[2022-04-30] MEDS ORDERED: PROPOFOL IV EMULSION 10 MG/ML 20 ML VIAL IV ONE (17:30)
[2022-04-30] MEDS ORDERED: ePHEDrine sulfate 50 MG/ML AMP IV PRN (17:30)
[2022-04-30] MEDS ORDERED: DEXAMETHASONE SOD INJ 4 MG/ML VIAL ONE (17:30)
[2022-04-30] MEDS ORDERED: GENTAMICIN CONSULT ACTIVE PRN (17:43)
[2022-04-30] MEDS ORDERED: miSOPROStoL 200 MCG TAB ONE (17:44)
--- NOTE | 2022-04-30 17:45 | History & Physical Bridge Note ---
Date of Service April 30, 2022 History & Physical Bridge Note I have examined the patient, reviewed the History & Physical and in the interval since the performance of the History & Physical I have noted the following changes of clinical significance: no changes noted
--- NOTE | 2022-04-30 17:52 | History & Physical Report ---
Date of Service April 30, 2022 Assessment & Plan (1) Retained products of conception: Plan: s/p Retained products of conception pt is scheduled for Dilation and evacuation of uterus under ultrasound guidance History of Present Illness Chief Complaint: Bleeding and passingof tissue Primary Care Provider: Oleksandr Rivas MD Pt is s/p demise and retained placenta on 04/01/22. Pt has since experienced bleeding and passing of tissue. she was seen at [place] [facility] yesterday and today she presents to [facility] . Pt has fever and CT shows possible retained placenta vrs bloosd clots. discussed finding with pt. offered expectant management with Cytotec vrs surgery. pt is agreeable to dilation and evaciuation of uterus under ultrasound guidance Allergies Allergy/AdvReac Type Severity Reaction Status Date / Time minocycline Allergy Intermediate RASH Verified 02/26/20 01:59 Home Medications Medication Instructions Recorded Confirmed Type vitamins-iron fumarate 65 1 tab PO DAILY 03/30/22 04/30/22 History mg iron-folic acid 1 mg tablet docusate sodium 100 mg capsule 100 mg PO BID 04/30/22 04/30/22 History (Colace) Patient History Medical History demise before 20 weeks with retention of fetus Surgical History History of bilateral tubal ligation 2014 History of cholecystectomy 2020 History of dilatation and curettage History of reversal of tubal ligation 10-22 Family History Grandmother (Maternal) Cancer Diabetes Hypertension Grandfather (Paternal) Cancer Social History Smoking Status: Never smoker Second Hand Exposure: Yes; Hx Alcohol Use: No Hx Substance Use: No Preferred Language: Monegasque Communication Ability: Effective Retail Selling Specialist Required: No Beliefs That Will Affect Care: None marital status: Single Current Living Situation: Family and Significant Other Feels Safe at Home: Yes Assistive Devices: None Results & Data ([facility]) Vital Signs (Past 12 Hours) Vital Signs Temp Pulse Pulse Resp BP BP Pulse Ox 04/30/22 17:00 70 19 99 04/30/22 17:00 80 19 138/84 99 04/30/22 14:10 38.6 C H 98 H 16 131/84 100 O2 Del Method 04/30/22 17:00 Room Air 04/30/22 17:00 Room Air 04/30/22 14:10 Room Air
--- NOTE | 2022-04-30 18:01 | Anesthesiology Consultation ---
Date of Service April 30, 2022 Assessment & Plan (1) Encounter for pre-operative examination: Chart Review Chart Review: entry level account representative initiated History Surgery Operation Date: 04/30/22 19:15 Proposed Procedures p Dilation and Evacuation - Arthur Smith MD Height/Weight Height: 5 ft 8 in Weight: 78.5 kg Allergies Allergy/AdvReac Type Severity Reaction Status Date / Time minocycline Allergy Intermediate RASH Verified 02/26/20 01:59 Medications Home Medications Medication Instructions Recorded Confirmed Last Taken vitamins-iron fumarate 65 1 tab PO DAILY 03/30/22 04/30/22 03/28/22 21:00 mg iron-folic acid 1 mg tablet docusate sodium 100 mg capsule 100 mg PO BID 04/30/22 04/30/22 Unknown (Colace) Past Medical History Medical History demise before 20 weeks with retention of fetus Past Family History Family History Grandmother (Maternal) Cancer Diabetes Hypertension Grandfather (Paternal) Cancer Past Surgical History Surgical History History of bilateral tubal ligation 2014 History of cholecystectomy 2020 History of dilatation and curettage History of reversal of tubal ligation 10-22 Social History Smoking Status: Never smoker Hx Alcohol Use: No Hx Substance Use: No Physical Exam Vital Signs Last Vital Signs Temp 101.5 F H 04/30/22 14:10 Pulse 80 04/30/22 17:00 Resp 19 04/30/22 17:00 BP 138/84 04/30/22 17:00 Pulse Ox 99 04/30/22 17:00 O2 Del Method 04/30/22 17:00 Testing Laboratory Results 04/30/22 15:00 04/30/22 15:00 PT 11.1 Seconds (9.0-12.0) 04/30/22 15:00 INR 1.0 (0.9-1.1) 04/30/22 15:00 APTT 28.1 Seconds (21.0-31.0) 04/30/22 15:00 Urine Color Yellow 04/30/22 15:00 Urine Appearance Clear (Clear) 04/30/22 15:00 Urine pH 8.5 (4.5-7.5) H 04/30/22 15:00 Ur Specific [place] 1.018 (1.000-1.030) 04/30/22 15:00 Urine Protein Negative (Negative) 04/30/22 15:00 Urine Glucose (UA) Negative (Negative) 04/30/22 15:00 Urine Ketones Negative (Negative) 04/30/22 15:00 Urine Nitrite Negative (Negative) 04/30/22 15:00 Ur Leukocyte Esterase 1+ (Negative) H 04/30/22 15:00 Urine WBC (Auto) >30 /hpf (0-5) H 04/30/22 15:00 Urine RBC (Auto) 10-30 /hpf (0-4) H 04/30/22 15:00 U Hyaline Cast (Auto) 1-5 /lpf (0-5) 04/30/22 15:00 U Epithel Cells (Auto) 20-30 /lpf (0-5) H 04/30/22 15:00 Urine Bacteria (Auto) Negative (Negative) 04/30/22 15:00 04/30/22 15:00 POC Ur Test NEG
[2022-04-30] MEDS ORDERED: GENTAMICIN SULFATE 400 MG in DEXTROSE 5% 100 ML IV STA (18:02)
[2022-04-30] MEDS ORDERED: CLINDAMYCIN/D5W 900 MG/50 ML BAG IV STA (18:04)
[2022-04-30] MEDS ORDERED: AMPICILLIN 2,000 MG in SODIUM CHLOR 0.9% AD-VAN 100 ML IV STA (18:16)
[2022-04-30] MEDS ORDERED: SILVER NITR/POTASSIUM NITRATE APPLICATOR ONE (19:01)
[2022-04-30] MEDS ORDERED: MAGNESIUM HYDROXIDE SUSP 30 ML UDC PO PRN (19:20)
[2022-04-30] MEDS ORDERED: PROMETHAZINE HCL 25 MG in SODIUM CHLORIDE 0.9% 50 ML IV PRN (19:20)
[2022-04-30] MEDS ORDERED: bisacodyL 10 MG SUPP PR PRN (19:20)
[2022-04-30] MEDS ORDERED: oxyCODONE/ACETAMINOPHEN 5mg/325mg TAB PO PRN (19:20)
[2022-04-30] MEDS ORDERED: LACTATED RINGER'S 1,000 ML IV SCH (19:30)
--- NOTE | 2022-04-30 19:44 | Anesthesiology Progress Note ---
Date of Service April 30, 2022 Anesthesia Post Procedure Vital Signs Vital Signs: Temp Pulse Pulse Pulse Resp BP BP 04/30/22 19:35 52 L 21 107/47 L 04/30/22 19:25 72 18 107/69 04/30/22 19:19 98.4 F 72 12 99/61 L 04/30/22 18:03 99.0 F 18 118/65 04/30/22 17:57 04/30/22 17:00 70 19 04/30/22 17:00 80 19 04/30/22 14:10 101.5 F H 98 H 16 131/84 BP Pulse Ox O2 Del Method O2 Flow Rate 04/30/22 19:35 100 Room Air 04/30/22 19:25 100 Oxymask 4 04/30/22 19:19 100 Oxymask 9 04/30/22 18:03 99 Room Air 04/30/22 17:57 Room Air 04/30/22 17:00 99 Room Air 04/30/22 17:00 138/84 99 Room Air 04/30/22 14:10 100 Room Air Pain Intensity Abdomen: Pain Intensity: 2 Transfer of Care Handoff Completed per policy Notes Mental Status: alert / awake / arousable and participated in evaluation Patient Amnestic to Procedure: Yes Nausea / Vomiting: adequately controlled Pain: adequately controlled Airway Patency, RR, SpO2: stable & adequate BP & HR: stable & adequate Hydration State: stable & adequate Anesthetic Complications: no major complications apparent and Pt Satisfied with anesthetic care
--- NOTE | 2022-04-30 19:55 | Pharmacy Report ---
Pharmacy PK ABX Note - Date of Service April 30, 2022 - Assessment and Plan Assessment 36 year old F receiving Gentamicin, Clindamycin, and Ampicillin for empiric treatment of possible endometritis. Pertinent microbiologic data includes: Unknown GBS status. Gentamicin Dosed gentamicin at 5mg/kg of actual body weight (). Ordered for 48 hours while cultures pending. No levels are recommended unless therapy extends beyond 72 hours. If therapy does extend past this time, a trough is ordered. In case therapy extends past 72 hours, a trough will be ordered before the third dose. Plan Gentamicin 400mg IV Q24H for a total of 3 days as empiric therapy for endometritis. Trough level ordered for 05/02/22 @ 1930. Pharmacy will continue to follow and will adjust dose/frequency as necessary. Thank you.
[2022-04-30] MEDS: IBUPROFEN 600 MG TAB PO PRN (21:26)
[2022-04-30] MEDS ORDERED: ACETAMINOPHEN 500 MG TAB PO PRN (22:39)
[2022-05-01] MEDS: AMPICILLIN 2,000 MG in SODIUM CHLOR 0.9% AD-VAN 100 ML IV SCH ×4 (01:40→20:11)
[2022-05-01] MEDS: CLINDAMYCIN/D5W 900 MG/50 ML BAG IV SCH ×3 (03:57→19:30)
--- NOTE | 2022-05-01 05:31 | Operative Report (OR) ---
DATE OF PROCEDURE: 04/30/2022. INDICATION FOR SURGERY: This is a 36-year-old status post demise and delivery at 15 weeks' ges tation on 03/31/2022. The patient had retained placenta. She underwent D and E that day to have sammy centa removed. Since discharge, the patient continues to have bleeding and has been passing tissue. She was seen on 04/29/2022 at [place] where ultrasound showed possible retained placenta. Today, she presented to the [facility] in the ER with fever. Repeat CT scan done showed jagjit ined placenta again. The patient desired to undergo D and E under ultrasound guidance. PREOPERATIVE DIAGNOSES: 1. Retained placenta after delivery of 15-week gestation fetus. 2. Endomyometritis. POSTOPERATIVE DIAGNOSES: 1. Retained placenta after delivery of 15-week gestation fetus. 2. Endomyometritis. PROCEDURE: 1. Exam under anesthesia. 2. Dilation and evacuation of uterus under ultrasound guidance. SURGEON: Arthur Smith MD. MAINFRAME ANALYST: None. ANESTHESIA: General. DRAINS: None. ESTIMATED BLOOD LOSS: 20 mL. INTRAVENOUS FLUIDS: 600 mL. URINE OUTPUT: 200 mL of clear urine at the beginning of the procedure. SPECIMEN: Moderate amount of retained products in the uterus. INTRAOPERATIVE COMPLICATIONS: None. PATIENT CONDITION: Stable. DISPOSITION: Postanesthesia care unit. ATTESTATION: I performed the entire procedure. FINDINGS: Normal female escutcheon. There were no lesions in the vagina, cervix appeared grossly no rmal. There was no blood in the vaginal vault. Under ultrasound guidance, moderate amount of produc ts could be seen in the uterus. Evacuation of the uterus showed moderate amount of products of mike ption. DESCRIPTION OF PROCEDURE: The patient was taken to the operating room where she was prepped and drap ed in normal sterile fashion in dorsal lithotomy position. Timeout was called. A weighted speculum was placed in the vagina. Magallon retractor was used to retract the anterior part of the vagina. Bladd er was catheterized and 200 mL of clear urine was obtained. Findings of the vagina and perineum are as dictated above. Single tooth tenaculum was used to grab the cervix. Cervix was dilated in series to a size 30. A 10 curved suction was introduced into the uterine cavity. This was done under ultr asound guidance. Suction was performed. It is apparent from the findings that products of conceptio n were seen in the uterus. A curved forcep was used to remove as much of the products from the uteru s as possible. Suction was used to curettage the cavity of the uterus. Suction was removed and a sh sarai size 2 curette introduced in the uterine cavity. Curettage was performed in all 4 quadrants unti l a gritty discharge was obtained. Ultrasound done showed no more products in the uterus. All instruments were removed from the uterus and the vagina and accounted for x2 including sponges, n eedles, and retractors. The patient was sent to recovery in stable condition. Job ID: [id number]
[2022-05-01 06:26] LABS: Basophils # (auto) 0.01 K/uL (0-0.2); Basophils % (auto) 0.1 %; Hematocrit (blood only) 32.3 % (34.1-44.9); Hemoglobin 10.5 g/dl (12.0-16.0); Immature Granulocytes # (auto) 0.05 K/uL (0.00-0.02); Immature Granulocytes % (auto) 0.5 %; Lymphocytes # (auto) 1.18 K/uL (1.2-3.4); Lymphocytes % (auto) 12.8 %; Mean Corpuscular Hemoglobin 29.8 pg (25.0-34.0); Mean Corpuscular Hgb Conc 32.5 g/dL (32.0-36.0); Mean Corpuscular Volume 91.8 fL (80.0-100.0); Mean Platelet Volume 12.3 fL (9.4-12.3); Monocytes # (auto) 0.57 K/uL (0.24-0.82); Monocytes % (auto) 6.2 %; Neutrophils # (auto) 7.43 K/uL (1.4-6.5); Neutrophils % (auto) 80.4 %; Platelet Count 109 K/uL (130-400); RDW Coefficient of Variation 12.4 % (11.5-14.5); RDW Standard Deviation 41.5 fL (36.4-46.3); Red Blood Count 3.52 M/uL (3.93-5.22); White Blood Count 9.24 K/ul (4.8-10.8)
--- NOTE | 2022-05-01 06:42 | Obstetrical Progress Note ---
Date of Service May 01, 2022 Assessment & Plan (1) Postop check: Postop Retained placenta Pt doing well Endomyometritis On antibx X3 afebrile < 24 hrs Neg. blood clx- pending Subjective Review of Systems All systems reviewed & are unremarkable except as noted in HPI & below Physical Exam Constitutional WD/WN, vitals as above Eyes PERRL, conjunctivae normal, anicteric sclerae ENMT external ear and nose normal, oropharynx normal Neck trachea midline, no thyromegaly Respiratory normal respiratory effort, lungs clear to auscultation Cardiovascular RRR, no murmur, no edema Chest (Breasts) normal inspection/palpation of breasts Gastrointestinal (Abdomen) normal bowel sounds, soft, nontender, no hepatosplenomegaly Musculoskeletal no cyanosis or clubbing, extremities motor strength 5/5 Skin + incision (Incision clean,dry and intact) Neurologic patellar DTR's 2+ bilat, sensation intact Psychiatric A+Ox3, euthymic affect Genitourinary no vaginal lesions, no adnexal mass Lymphatic no cervical or axillary lymphadenopathy Results & Data ([facility]) Vital Signs (Past 12 Hours) Vital Signs Temp Pulse Pulse Resp BP Pulse Ox O2 Del Method 05/01/22 05:00 103/59 L 05/01/22 04:00 36.7 C 57 L 16 89/51 L 98 Room Air 04/30/22 23:30 37.2 C 60 16 104/56 L 97 Room Air 04/30/22 22:25 37.2 C 80 16 113/57 L 95 Room Air 04/30/22 21:25 38.9 C H 83 16 112/64 96 Room Air 04/30/22 20:55 36.7 C 78 16 117/72 98 Room Air 04/30/22 20:25 36.9 C 108 H 16 104/55 L 93 Room Air 04/30/22 19:55 37.3 C 57 L 17 100/58 L 95 Room Air 04/30/22 19:45 59 L 20 96/54 L 96 Room Air 04/30/22 19:35 52 L 21 107/47 L 100 Room Air 04/30/22 19:25 72 18 107/69 100 Oxymask 04/30/22 19:19 36.9 C 72 12 99/61 L 100 Oxymask O2 Flow Rate 05/01/22 05:00 05/01/22 04:00 04/30/22 23:30 04/30/22 22:25 04/30/22 21:25 04/30/22 20:55 04/30/22 20:25 04/30/22 19:55 04/30/22 19:45 04/30/22 19:35 04/30/22 19:25 4 04/30/22 19:19 9
[2022-05-01 06:46] LABS: Creatinine Clr Calc Pharmacy 104.4 ml/min; Est GFR (African American) 106.7 ml/min; Est GFR (Non-African American) 92.1 ml/min
[2022-05-01 11:26] LABS: A calco-baum cmplx NotReported Not Detected (NotDetected); Bact fragilis Not Reported Not Detected (NotDetected); C auris Not Reported Not Detected (NotDetected); CTX-M Resistant Gene Not Detected (NotDetected); Calbicans Not Reported Not Detected (NotDetected); Candida glabrata Not Reported Not Detected (NotDetected); Candida krusei Not Reported Not Detected (NotDetected); Cneoformans/gatti Not Reported Not Detected (NotDetected); Cparapsilosis Not Reported Not Detected (NotDetected); Ctropicalis Not Reported Not Detected (NotDetected); E cloacae compx Not Reported Not Detected (NotDetected); Efaecalis Not Reported Not Detected (NotDetected); Efaecium Not Reported Not Detected (NotDetected); Enterobacterales DETECTED (NotDetected); Enterobacterales Not Reported DETECTED (NotDetected); Escherichia coli Not Reported DETECTED (NotDetected); H influenzae Not Reported Not Detected (NotDetected); IMP Resistant Gene Not Detected (NotDetected); K aerogenes Not Reported Not Detected (NotDetected); KPC Resistant Gene Not Detected (NotDetected); Koxytoca Not Reported Not Detected (NotDetected); Kpneumoniae grp Not Reported Not Detected (NotDetected); Lmonocyt Not Reported Not Detected (NotDetected); N meningitidis Not Reported Not Detected (NotDetected); NDM Resistant Gene Not Detected (NotDetected); OXA 48 Like Resistant Gene Not Detected (NotDetected); P aeruginosa Not Reported Not Detected (NotDetected); Proteus spp Not Reported Not Detected (NotDetected); Salmonella spp Not Reported Not Detected (NotDetected); Smarcescens Not Reported Not Detected (NotDetected); Staph lugdunensis Not Reported Not Detected (NotDetected); Staph spp. Not Reported Not Detected (NotDetected); Staphaureus Not Reported Not Detected (NotDetected); Staphepi Not Reported Not Detected (NotDetected); Stenmaltophilia Not Reported Not Detected (NotDetected); Strep agal(GrpB) Not Reported Not Detected (NotDetected); Strep pneum Not Reported Not Detected (NotDetected); Strep pyog (GrpA) Not Reported Not Detected (NotDetected); Strep spp Not Reported Not Detected (NotDetected); VIM Resistant Gene Not Detected (NotDetected); mcr-1 Colistin Resistant Gene Not Detected (NotDetected)
[2022-05-01] MEDS: IBUPROFEN 600 MG TAB PO PRN (19:30)
[2022-05-01] MEDS: DOCUSATE SODIUM 100 MG CAP PO SCH (19:30)
[2022-05-01] MEDS ORDERED: GENTAMICIN SULFATE 400 MG in DEXTROSE 5% 100 ML IV SCH (20:00)
[2022-05-02] MEDS: AMPICILLIN 2,000 MG in SODIUM CHLOR 0.9% AD-VAN 100 ML IV SCH ×2 (02:00→08:28)
[2022-05-02] MEDS: CLINDAMYCIN/D5W 900 MG/50 ML BAG IV SCH (03:58)
[2022-05-02 07:24] LABS: Basophils # (auto) 0.04 K/uL (0-0.2); Basophils % (auto) 0.7 %; Eosinophils # (auto) 0.15 K/uL (0-0.50); Eosinophils % (auto) 2.7 %; Hematocrit (blood only) 28.6 % (34.1-44.9); Hemoglobin 9.2 g/dl (12.0-16.0); Immature Granulocytes # (auto) 0.02 K/uL (0.00-0.02); Immature Granulocytes % (auto) 0.4 %; Lymphocytes # (auto) 1.65 K/uL (1.2-3.4); Lymphocytes % (auto) 30.1 %; Mean Corpuscular Hemoglobin 29.5 pg (25.0-34.0); Mean Corpuscular Hgb Conc 32.2 g/dL (32.0-36.0); Mean Corpuscular Volume 91.7 fL (80.0-100.0); Monocytes # (auto) 0.62 K/uL (0.24-0.82); Monocytes % (auto) 11.3 %; Neutrophils % (auto) 54.8 %; Platelet Count 115 K/uL (130-400); RDW Coefficient of Variation 12.7 % (11.5-14.5); RDW Standard Deviation 42.2 fL (36.4-46.3); Red Blood Count 3.12 M/uL (3.93-5.22); White Blood Count 5.48 K/ul (4.8-10.8)
[2022-05-02 07:46] LABS: Creatinine Clr Calc Pharmacy 96.2 ml/min; Est GFR (African American) 96.6 ml/min; Est GFR (Non-African American) 83.4 ml/min
[2022-05-02] MEDS: DOCUSATE SODIUM 100 MG CAP PO SCH (08:29)
--- NOTE | 2022-05-02 10:04 | Gynecologic Progress Note ---
Date of Service May 02, 2022 Assessment & Plan (1) Endometritis following delivery: Plan discharge home f/u in 2 weeks in office Admission and Anticipated Discharge Date Admission Date: April 30, 2022 Subjective doing well no pain or bleeding tolerating diet well passing gas Physical Exam Constitutional: WD/WN, vitals as above Gastrointestinal (Abdomen): Inspection/Auscultation: abdomen normal to inspection abdomen soft and non-tender Musculoskeletal: Extremities: extremities normal to inspection Skin: no rashes, warm and dry Neurologic: patellar DTR's 2+ bilat, sensation intact Psychiatric: A+Ox3, euthymic affect Results & Data ([facility]) Vital Signs (Past 12 Hours) Vital Signs Temp Pulse Resp BP Pulse Ox O2 Del Method 05/02/22 09:59 36.5 C 72 16 95/54 L 97 05/01/22 22:54 36.5 C 72 16 95/54 L 97 Room Air Laboratory Results Laboratory Results - last 72 hr 04/30/22 04/30/22 04/30/22 15:00 15:00 15:00 WBC 10.78 RBC 3.65 L Hgb 10.9 L Hct 33.3 L MCV 91.2 MCH 29.9 MCHC 32.7 RDW Std Deviation 42.0 RDW Coeff of Avelino 12.6 Plt Count 149 MPV 11.8 Immature Gran % (Auto) 0.4 Neut % (Auto) 81.3 Lymph % (Auto) 11.4 [place] % (Auto) 6.3 Eos % (Auto) 0.3 Baso % (Auto) 0.3 Neut # (Auto) 8.77 H Lymph # (Auto) 1.23 [place] # (Auto) 0.68 Eos # (Auto) 0.03 Baso # (Auto) 0.03 Immature Gran # (Auto) 0.04 H PT 11.1 INR 1.0 APTT 28.1 PTT Ratio 1.0 Sodium 137 Potassium 3.2 L Chloride 106 Carbon Dioxide 22 Anion Gap 9 BUN 7 Creatinine 0.73 Est Cr Clr Drug Dosing 117.3 Est GFR ( Amer) 122.8 Est GFR (Non-Af Amer) 106.0 BUN/Creatinine Ratio 9.6 L Glucose 95 Calcium 8.9 Total Bilirubin 0.5 Direct Bilirubin 0.2 AST 16 ALT 15 Alkaline Phosphatase 57 Total Protein 7.2 Albumin 4.1 Lipase 5 L Urine Color Urine Appearance Urine pH Ur Specific [place] Urine Protein Urine Glucose (UA) Urine Ketones Urine Blood Urine Nitrite Urine Bilirubin Urine Urobilinogen Ur Leukocyte Esterase Urine WBC (Auto) Urine RBC (Auto) U Hyaline Cast (Auto) U Epithel Cells (Auto) Urine Bacteria (Auto) POC Ur Test Enterobacterales (PCR) E. coli (PCR) SARS-CoV-2, RNA, NAAT mcr-1 Colistin Res Gene PCR blaIMP Car res Gene PCR KPC-Carbap Res Gene PCR blaNDM Car Res Gene PCR OXA-48 Carbapenem Resis Gene (PCR) blaVIM Car Res Gene PCR CTX-M Gene Resistance (PCR) Bld Cult ID Panel PCR 04/30/22 04/30/22 04/30/22 15:00 15:00 17:48 WBC RBC Hgb Hct MCV MCH MCHC RDW Std Deviation RDW Coeff of Avelino Plt Count MPV Immature Gran % (Auto) Neut % (Auto) Lymph % (Auto) [place] % (Auto) Eos % (Auto) Baso % (Auto) Neut # (Auto) Lymph # (Auto) [place] # (Auto) Eos # (Auto) Baso # (Auto) Immature Gran # (Auto) PT INR APTT PTT Ratio Sodium Potassium Chloride Carbon Dioxide Anion Gap BUN Creatinine Est Cr Clr Drug Dosing Est GFR ( Amer) Est GFR (Non-Af Amer) BUN/Creatinine Ratio Glucose Calcium Total Bilirubin Direct Bilirubin AST ALT Alkaline Phosphatase Total Protein Albumin Lipase Urine Color Yellow Urine Appearance Clear Urine pH 8.5 H Ur Specific [place] 1.018 Urine Protein Negative Urine Glucose (UA) Negative Urine Ketones Negative Urine Blood 2+ H Urine Nitrite Negative Urine Bilirubin Negative Urine Urobilinogen Negative Ur Leukocyte Esterase 1+ H Urine WBC (Auto) >30 H Urine RBC (Auto) 10-30 H U Hyaline Cast (Auto) 1-5 U Epithel Cells (Auto) 20-30 H Urine Bacteria (Auto) Negative POC Ur Test NEG Enterobacterales (PCR) E. coli (PCR) SARS-CoV-2, RNA, NAAT NEGATIVE mcr-1 [place] Res Gene PCR blaIMP Car res Gene PCR KPC-Carbap Res Gene PCR blaNDM Car Res Gene PCR OXA-48 Carbapenem Resis Gene (PCR) blaVIM Car Res Gene PCR CTX-M Gene Resistance (PCR) Bld Cult ID Panel PCR 04/30/22 05/01/22 05/01/22 21:06 06:09 06:09 WBC 9.24 RBC 3.52 L Hgb 10.5 L Hct 32.3 L MCV 91.8 MCH 29.8 MCHC 32.5 RDW Std Deviation 41.5 RDW Coeff of Avelino 12.4 Plt Count 109 L MPV 12.3 Immature Gran % (Auto) 0.5 Neut % (Auto) 80.4 Lymph % (Auto) 12.8 [place] % (Auto) 6.2 Eos % (Auto) 0.0 Baso % (Auto) 0.1 Neut # (Auto) 7.43 H Lymph # (Auto) 1.18 L [place] # (Auto) 0.57 Eos # (Auto) 0.00 Baso # (Auto) 0.01 Immature Gran # (Auto) 0.05 H PT INR APTT PTT Ratio Sodium Potassium Chloride Carbon Dioxide Anion Gap BUN Creatinine 0.82 Est Cr Clr Drug Dosing 104.4 Est GFR ( Amer) 106.7 Est GFR (Non-Af Amer) 92.1 BUN/Creatinine Ratio Glucose Calcium Total Bilirubin Direct Bilirubin AST ALT Alkaline Phosphatase Total Protein Albumin Lipase Urine Color Urine Appearance Urine pH Ur Specific [place] Urine Protein Urine Glucose (UA) Urine Ketones Urine Blood Urine Nitrite Urine Bilirubin Urine Urobilinogen Ur Leukocyte Esterase Urine WBC (Auto) Urine RBC (Auto) U Hyaline Cast (Auto) U Epithel Cells (Auto) Urine Bacteria (Auto) POC Ur Test Enterobacterales (PCR) DETECTED A E. coli (PCR) DETECTED A SARS-CoV-2, RNA, NAAT mcr-1 [place] Res Gene PCR Not Detected blaIMP Car res Gene PCR Not Detected KPC-Carbap Res Gene PCR Not Detected blaNDM Car Res Gene PCR Not Detected OXA-48 Carbapenem Resis Gene (PCR) Not Detected blaVIM Car Res Gene PCR Not Detected CTX-M Gene Resistance (PCR) Not Detected Bld Cult ID Panel PCR See PCR Comment 05/02/22 05/02/22 07:08 07:08 WBC 5.48 RBC 3.12 L Hgb 9.2 L Hct 28.6 L MCV 91.7 MCH 29.5 MCHC 32.2 RDW Std Deviation 42.2 RDW Coeff of Avelino 12.7 Plt Count 115 L MPV 12.0 Immature Gran % (Auto) 0.4 Neut % (Auto) 54.8 Lymph % (Auto) 30.1 [place] % (Auto) 11.3 Eos % (Auto) 2.7 Baso % (Auto) 0.7 Neut # (Auto) 3.00 Lymph # (Auto) 1.65 [place] # (Auto) 0.62 Eos # (Auto) 0.15 Baso # (Auto) 0.04 Immature Gran # (Auto) 0.02 PT INR APTT PTT Ratio Sodium Potassium Chloride Carbon Dioxide Anion Gap BUN Creatinine 0.89 Est Cr Clr Drug Dosing 96.2 Est GFR ( Amer) 96.6 Est GFR (Non-Af Amer) 83.4 BUN/Creatinine Ratio Glucose Calcium Total Bilirubin Direct Bilirubin AST ALT Alkaline Phosphatase Total Protein Albumin Lipase Urine Color Urine Appearance Urine pH Ur Specific [place] Urine Protein Urine Glucose (UA) Urine Ketones Urine Blood Urine Nitrite Urine Bilirubin Urine Urobilinogen Ur Leukocyte Esterase Urine WBC (Auto) Urine RBC (Auto) U Hyaline Cast (Auto) U Epithel Cells (Auto) Urine Bacteria (Auto) POC Ur Test Enterobacterales (PCR) E. coli (PCR) SARS-CoV-2, RNA, NAAT mcr-1 Col[place] Res Gene PCR blaIMP Car res Gene PCR KPC-Carbap Res Gene PCR blaNDM Car Res Gene PCR OXA-48 Carbapenem Resis Gene (PCR) blaVIM Car Res Gene PCR CTX-M Gene Resistance (PCR) Bld Cult ID Panel PCR
[2022-05-02] MEDS ORDERED: GENTAMICIN TROUGH ONE (19:30)
--- NOTE | 2022-05-07 14:04 | Discharge Summary (DS) ---
DATE OF ADMISSION: 04/30/2022. DATE OF DISCHARGE: 05/02/2022. CHIEF COMPLAINT: Endomyometritis status post demise. HISTORY OF PRESENT ILLNESS: This is a 36-year-old status post a demise and retained placenta o n 04/01/2022, patient underwent D and E on day of delivery. The patient, however, continued to have bleeding. Ultrasound done on 04/30/2022 showed yet more retained placenta in the uterus. The patien t had presented to the Emergency Room with fever. Decision was therefore made to take the patient to the operating room and perform another dilation and evacuation of the uterus under ultrasound ez pope. Details of surgery is in the surgical note. The patient had fever and was treated with triple a ntibiotics. She became afebrile and was discharged home safely on 05/02/2022. PAST MEDICAL HISTORY: No history of diabetes, hypertension, or asthma. PAST SURGICAL HISTORY: History of bilateral tubal ligation and tubal reanastomosis, history of damion cystectomy and dilation and evacuation of uterus on 04/01/2022. FAMILY HISTORY: Noncontributory. ALLERGIES: PATIENT HAS ALLERGIES TO MINOCYCLINE. SOCIAL HISTORY: Denies tobacco, drug or alcohol use. REVIEW OF SYSTEMS: Negative except as dictated in the HPI. PHYSICAL EXAMINATION: VITAL SIGNS: On 05/02/2022 showed blood pressure 94/54, pulse 72, respirations 16, temperature 36.5. HEART: S1 and S2, regular rhythm and rate. LUNGS: Clear to auscultation bilaterally. ABDOMEN: Nontender, nondistended, positive bowel sounds. EXTREMITIES: No cyanosis, clubbing or edema. LABORATORY DATA: On 05/02/2022 showed white count of 5.4, hemoglobin of 9.2, hematocrit of 28.6, sammy telets of 115. CONDITION ON DISCHARGE: Stable. OPERATIONS: Dilation and evacuation of uterus under ultrasound guidance. DISCHARGE DIAGNOSES: 1. Status post retained placenta after demise. 2. Endomyometritis. PLAN ON DISCHARGE: The patient is discharged home with instructions regarding activity, diet, follow up appointment and medications. Job ID: [id number]
== END 2022-05-02 10:15 | disposition home or self-care (01) | DRG 770 ==
LOC: ED 14:00 → OR 17:57 → 4E1 19:18
DX: Z88.1 Allergy status to other antibiotic agents; Z79.899 Other long term (current) drug therapy; O02.1 Missed abortion; O08.1 Delayed or excessive hemorrhage following ectopic and molar pregnancy; O08.0 Genital tract and pelvic infection following ectopic and molar pregnancy; O08.89 Other complications following an ectopic and molar pregnancy

== ENCOUNTER 2023-04-07 07:43 | Inpatient (IN) ==
[2023-04-07] MEDS ORDERED: PENICILLIN G POTASSIUM 6 MU in DEXTROSE 5% 250 ML IV STA (08:33)
[2023-04-07] MEDS ORDERED: OXYTOCIN 30 UNITS/500 ML BAG IV PRN ×3 (08:33→19:58)
[2023-04-07] MEDS ORDERED: LIDOCAINE 1% LOCAL 20 ML VIAL INFIL PRN (08:33)
[2023-04-07] MEDS: LACTATED RINGER'S 1,000 ML IV PRN ×2 (08:58→13:25)
--- NOTE | 2023-04-07 09:08 | History & Physical Report ---
Date of Service April 07, 2023 Assessment & Plan (1) Elderly multigravida: (2) Group beta Strep positive: (3) HSV-2 infection: Plan 37 yo at 40 2/7 wga presents for IOL VSS Fetus cat 1 Labor - will start pit. Pt denies feeling lesions or prodromal s/s, SSE neg for lesions GBS+, pcn ordered Epidural PRN Admission and Anticipated Discharge Date Admission Date: April 07, 2023 History of Present Illness Chief Complaint: IOL Primary Care Provider: Oleksandr Rivas MD 37 yo at 40 2/7 wga w/ JCARLOS 04/05 by LMP presenst for post dates IOL. 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 G2 2008 G3 2009 SAB G4 2010 G5 2013 G6 2016 G7 2021 15 wk IUFD, retained plac requiring D&E G8 current Hx HSV on valtrex, last outbreak 2019 Allergies Allergy/AdvReac Type Severity Reaction Status Date / Time minocycline Allergy Intermediate RASH Verified 04/02/23 11:11 Home Medications Medication Instructions Recorded Confirmed Type vitamins-iron fumarate 65 1 tab PO DAILY 03/30/22 04/07/23 History mg iron-folic acid 1 mg tablet docusate sodium 100 mg capsule 100 mg PO BID 04/30/22 04/07/23 History (Colace) acetaminophen [Tylenol] PO PRN Headache 01/02/23 04/02/23 History calcium carbonate [Tums] PO PRN Heartburn 01/02/23 04/02/23 History valacyclovir 1 gram tablet 1,000 mg PO BID #40 tabs 03/04/23 04/07/23 Rx Patient History Medical History (Updated 03/15/23 @ 20:22 by Colleen Crystal MD, FACOG) demise before 20 weeks with retention of fetus History of chicken pox Surgical History (Updated 01/02/23 @ 10:27 by Ria Abernathy) History of bilateral tubal ligation 2014 History of cholecystectomy 2020 History of dilatation and curettage x2 History of reversal of tubal ligation - Family History (Updated 01/02/23 @ 10:31 by Ria Abernathy) Grandmother (Maternal) Diabetes Hypertension Ovarian cancer Grandfather (Paternal) Colorectal cancer Denies family history of Breast cancer Social History (Updated 01/02/23 @ 10:00 by Ria Abernathy) Smoking Status: Never smoker Second Hand Exposure: Yes; Do You Dip or Chew Tobacco: No; Hx Alcohol Use: Yes Alcohol type: other Hx Substance Use: No Preferred Language: Burundian Communication Ability: Effective Mosaic Tiler Required: No Beliefs That Will Affect Care: None marital status: marital status details: RUFUS Monsalve (34) [phone] Current Living Situation: Spouse and Family Current Living Situation Comment: lives with spouse, children, dog, cat-kids changing litter current occupational status: employed 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 Other Information That Helps Us Care for You: No Feels Safe at Home: Yes Safety Concerns: Feels Safe At This Time Assistive Devices: None Physical Exam Genitourinary: OB Exam Abdomen: + vertex and + estimated weight (8-9) Manual OB Exam: + cervical dilation (2-3), + cervical effacement 50% and + station -2 OB Exam Monitor Tracing: + external FHT monitor used, + external uterine monitor used (irreg ctx) and + category I (120/mod/+accel/-decel) SSE neg for HSV lesions Results & Data Vital Signs (Past 12 Hours) Vital Signs Temp Pulse Resp BP 04/07/23 07:55 97.7 F 82 18 123/76 04/07/23 07:54 18 04/07/23 07:54 97.7 F 18 04/07/23 07:49 82 123/76 Laboratory Results Initial OB Labs 08/26/22 Blood Type & RH O positive Antibody Screen negative HCT/HGB 41.2/12.6 Platelets 191 Hep C IgG 13yrs+ Old negative Pap Test Chlamydia negative Gonorrhea negative Rubella positive RPR non-reactive Urine Culture/Screen no growth HBsAg negative HIV negative MCV 89.2 Ultrasound Genetic OB Labs CF SMA Panorama Negative Qnatal 09/08/22 Quad Screen MASFP Nuchal Translucency Diagnostic Findings ant fundal plac Coding Level of Care Code None Diagnoses Elderly multigravida O09.529 Group beta Strep positive B95.1 HSV-2 infection B00.9
[2023-04-07 09:27] LABS: Hematocrit (blood only) 32.9 % (37.0-47.0); Hemoglobin 10.6 g/dl (12.0-16.0); Mean Corpuscular Hemoglobin 26.4 pg (25.0-34.0); Mean Corpuscular Hgb Conc 32.2 g/dL (32.0-36.0); Mean Platelet Volume 12.9 fL (9.4-12.4); Nucleated RBC # (auto) 0.02 K/uL (0.00-0.12); Nucleated RBC % (auto) 0.2 %; Platelet Count 176 K/uL (130-400); RDW Coefficient of Variation 17.4 % (11.5-14.5); RDW Standard Deviation 50.8 fL (36.4-46.3); Red Blood Count 4.01 M/uL (4.20-5.40); White Blood Count 10.65 K/ul (4.8-10.8)
[2023-04-07] MEDS: PENICILLIN G POTASSIUM 3 MU in DEXTROSE 5% 100 ML IV PRN ×2 (12:36→16:36)
[2023-04-07] MEDS ORDERED: fentaNYL citrate PF 100 MCG/2 ML VIAL ONE (12:46)
[2023-04-07] MEDS ORDERED: SODIUM CHLORIDE 0.9% PF INJ 10 ML VIAL ONE (12:46)
[2023-04-07] MEDS ORDERED: ePHEDrine sulfate 50 MG/ML AMP ONE (12:46)
[2023-04-07] MEDS ORDERED: BUPIVACAINE 0.25% PF 30 ML VIAL ONE (12:47)
[2023-04-07] MEDS ORDERED: fentaNYL 2MCG/ML ROPIVACAINE 1.25MG/ML 100 ML BAG EPI ONE (12:47)
[2023-04-07] MEDS ORDERED: LIDOCAINE 2%/EPINEPHRINE 1:200,000 20 ML PF ONE (12:47)
--- NOTE | 2023-04-07 13:06 | Anesthesiology Consultation ---
Date of Service April 07, 2023 Assessment & Plan (1) Encounter for pre-operative examination: Chart Review Chart Review: Patient NOT seen in Pre Admission Testing and Acceptable Risk for Labor Epidural Consults Requested none History Height/Weight Height: 5 ft 4 in Weight: 84.368 kg Allergies Allergy/AdvReac Type Severity Reaction Status Date / Time minocycline Allergy Intermediate RASH Verified 04/02/23 11:11 Medications Home Medications Medication Instructions Recorded Confirmed Last Taken vitamins-iron fumarate 65 1 tab PO DAILY 03/30/22 04/07/23 04/06/23 mg iron-folic acid 1 mg tablet docusate sodium 100 mg capsule 100 mg PO BID 04/30/22 04/07/23 04/06/23 (Colace) acetaminophen [Tylenol] PO PRN Headache 01/02/23 04/02/23 04/03/23 calcium carbonate [Tums] PO PRN Heartburn 01/02/23 04/02/23 04/05/23 valacyclovir 1 gram tablet 1,000 mg PO BID #40 tabs 03/04/23 04/07/23 04/06/23 Active Medications Generic Name Dose Route Start Last Admin Trade Name Freq PRN Reason Stop Dose Admin Lactated Ringer's 1,000 mls @ 125 mls/hr 04/07/23 08:33 04/07/23 12:44 Lr IV 04/09/23 08:32 999 mls/hr .Q8H PRN Infusion L&D Protocol Protocol Penicillin G Potassium 3 mu/ 106 mls @ 100 mls/hr 04/07/23 11:34 04/07/23 12:36 Dextrose IV 04/17/23 11:33 100 mls/hr Q4H PRN Administration GBS(+) Until Delivery Oxytocin 30 units in 500 mls @ 14 mls/hr 04/07/23 08:33 04/07/23 12:00 Pitocin IV 04/09/23 08:32 0.84 units/hr .Q24H PRN 14 mls/hr Labor Induction/Augmentation Titration Protocol 0.84 UNITS/HR Past Medical History Medical History demise before 20 weeks with retention of fetus History of chicken pox Past Family History Family History Grandmother (Maternal) Diabetes Hypertension Ovarian cancer Grandfather (Paternal) Colorectal cancer Denies family history of Breast cancer Past Surgical History Surgical History History of bilateral tubal ligation 2014 History of cholecystectomy 2020 History of dilatation and curettage x2 History of reversal of tubal ligation 10-22 Social History Smoking Status: Never smoker Do You Dip or Chew Tobacco: No Hx Alcohol Use: Yes Alcohol type: other alcohol intake frequency: a few times a month Hx Substance Use: No substance use type: does not use Physical Exam Vital Signs Last Vital Signs Temp 97.5 F L 04/07/23 11:00 Pulse 91 H 04/07/23 13:01 Resp 18 04/07/23 12:00 BP 123/80 04/07/23 12:59 Pulse Ox 100 04/07/23 13:01 Testing Laboratory Results 04/07/23 08:56 Blood Type O Positive 04/07/23 08:56 Antibody Screen NEGATIVE 04/07/23 08:56
[2023-04-07] MEDS ORDERED: SODIUM CHLORIDE 0.9% PF INJ 10 ML VIAL EPI STA (13:12)
[2023-04-07] MEDS ORDERED: ROPIVACAINE 0.5% PF 5 MG/ML 20 ML VIAL EPI PRN (13:12)
[2023-04-07] MEDS ORDERED: BUPIVACAINE 0.25% PF 30 ML VIAL EPI STA (13:12)
[2023-04-07] MEDS ORDERED: LIDOCAINE 2% MPF LOCAL 5 ML VIAL EPI PRN (13:12)
[2023-04-07] MEDS ORDERED: fentaNYL 2MCG/ML ROPIVACAINE 1.25MG/ML 100 ML BAG EPI PRN (13:12)
[2023-04-07] MEDS ORDERED: BUPIVACAINE 0.25% PF 30 ML VIAL EPI PRN (13:12)
[2023-04-07] MEDS ORDERED: ePHEDrine sulfate 50 MG/ML AMP IV PRN (13:12)
[2023-04-07] MEDS ORDERED: LIDOCAINE 2%/EPINEPHRINE 1:200,000 20 ML PF EPI STA (13:12)
[2023-04-07] MEDS ORDERED: diphenhydrAMINE 50 MG/ML VIAL IV PRN (13:12)
[2023-04-07] MEDS ORDERED: fentaNYL citrate PF 100 MCG/2 ML VIAL EPI STA (13:12)
[2023-04-07] MEDS ORDERED: SODIUM CHLORIDE 0.9% PF INJ 10 ML VIAL EPI PRN (13:12)
[2023-04-07] MEDS ORDERED: fentaNYL citrate PF 100 MCG/2 ML VIAL EPI PRN (13:12)
[2023-04-07] MEDS ORDERED: NALBUPHINE HCL INJ 10 MG/ML AMP IV PRN (13:12)
[2023-04-07] MEDS ORDERED: NALOXONE HCL 1 MG in SODIUM CHLORIDE 0.9% 1,000 ML IV PRN (13:12)
[2023-04-07] MEDS ORDERED: NALOXONE HCL 0.4 MG/1 ML VIAL/CARP IV PRN (13:12)
--- NOTE | 2023-04-07 14:08 | Labor Progress Brief Note ---
Date of Service April 07, 2023 Subjective comfortable w/ epidural Assessment & Plan (1) Elderly multigravida: (2) Group beta Strep positive: (3) HSV-2 infection: Plan 37 yo at 40 2/7 wga presents for IOL VSS Fetus cat 1 Labor - pit at 14, now s/p arom for mec GBS+, pcn ordered Epidural in place Admission and Anticipated Discharge Date Admission Date: April 07, 2023 Physical Exam Genitourinary: Manual OB Exam: + cervical dilation (3-4), + cervical effacement 50%, + station -2 and + amniotic fluid (arom mec fluid) OB Exam Monitor Tracing: + external FHT monitor used, + external uterine monitor used (irreg ctx) and + category I (120/mod/+accel/-decel) Results & Data Vital Signs (Past 12 Hours) Vital Signs Temp Pulse Resp BP Pulse Ox 04/07/23 07:55 97.7 F 82 18 123/76 04/07/23 14:01 73 136/79 99 04/07/23 13:56 80 99 04/07/23 13:51 100 04/07/23 13:51 76 04/07/23 13:51 81 120/72 04/07/23 13:46 96 H 99 04/07/23 13:45 88 116/69 04/07/23 13:43 89 117/70 04/07/23 13:41 99 04/07/23 13:41 100 H 04/07/23 13:29 18 04/07/23 13:29 18 04/07/23 13:41 83 111/64 04/07/23 13:39 96 H 105/57 L 04/07/23 13:36 102 H 99 04/07/23 13:37 88 104/56 L 04/07/23 13:35 87 119/75 04/07/23 13:32 93 H 140/87 04/07/23 13:31 97 H 98 04/07/23 13:26 106 H 100 04/07/23 13:21 114 H 18 99 04/07/23 13:16 125 H 98 04/07/23 13:11 99 H 99 04/07/23 13:06 90 99 04/07/23 13:01 91 H 100 04/07/23 12:59 88 123/80 04/07/23 12:00 18 04/07/23 12:00 18 04/07/23 11:59 87 125/78 04/07/23 11:00 18 04/07/23 11:00 97.5 F L 04/07/23 11:01 82 123/81 04/07/23 10:00 18 04/07/23 10:00 18 04/07/23 10:02 81 117/80 04/07/23 09:00 18 04/07/23 09:00 18 04/07/23 07:54 18 04/07/23 07:54 97.7 F 18 04/07/23 07:49 82 123/76 Coding Level of Care Code None Diagnoses Elderly multigravida O09.529 Group beta Strep positive B95.1 HSV-2 infection B00.9
--- NOTE | 2023-04-07 18:00 | Labor Progress Brief Note ---
Date of Service April 07, 2023 Subjective feeling some pressure Assessment & Plan (1) Elderly multigravida: (2) Group beta Strep positive: (3) HSV-2 infection: Plan 37 yo at 40 2/7 wga presents for IOL VSS Fetus cat 1 Labor - pit at 20, IUPC placed. Good progress in station, feels like was asynclitic at some point. Will continue pit pending MVUs GBS+, pcn ordered Epidural in place Admission and Anticipated Discharge Date Admission Date: April 07, 2023 Physical Exam Genitourinary: Manual OB Exam: + cervical dilation 4 cm, + cervical effacement 50% and + station -1 OB Exam Monitor Tracing: + external FHT monitor used, + intra-uterine pressure catheter used and + category I (120/mod/+accel/-decel) Results & Data Vital Signs (Past 12 Hours) Vital Signs Temp Pulse Resp BP Pulse Ox 04/07/23 07:55 97.7 F 82 18 123/76 04/07/23 17:56 97 H 98 04/07/23 17:51 98 H 99 04/07/23 17:46 93 H 99 04/07/23 17:42 77 120/77 04/07/23 17:41 82 100 04/07/23 17:36 94 H 98 04/07/23 17:30 18 04/07/23 17:30 18 04/07/23 17:31 86 100 04/07/23 17:27 84 119/74 04/07/23 17:26 84 97 04/07/23 17:21 89 99 04/07/23 17:16 88 98 04/07/23 17:12 82 113/63 04/07/23 17:11 90 98 04/07/23 17:00 18 04/07/23 17:00 18 04/07/23 17:06 82 99 04/07/23 17:01 82 100 04/07/23 16:56 71 99 04/07/23 16:57 74 124/71 04/07/23 16:51 71 99 04/07/23 16:45 18 04/07/23 16:45 18 04/07/23 16:46 71 100 04/07/23 16:43 69 123/76 04/07/23 16:41 75 100 04/07/23 16:36 70 100 04/07/23 16:15 18 04/07/23 16:15 18 04/07/23 16:30 18 04/07/23 16:30 18 04/07/23 16:31 69 100 04/07/23 16:28 59 L 118/73 04/07/23 16:26 67 100 04/07/23 16:21 68 99 04/07/23 16:00 18 04/07/23 16:00 98.8 F 18 04/07/23 16:16 89 99 04/07/23 16:12 68 99/59 L 04/07/23 16:11 81 96 04/07/23 16:06 79 100 04/07/23 16:01 90 100 04/07/23 15:56 72 100 04/07/23 15:57 81 103/57 L 04/07/23 15:51 72 99 04/07/23 15:46 71 97 04/07/23 15:42 88 94/53 L 04/07/23 15:41 74 98 04/07/23 15:36 70 98 04/07/23 14:45 18 04/07/23 14:45 18 04/07/23 15:00 18 04/07/23 15:00 18 04/07/23 15:15 18 04/07/23 15:15 18 04/07/23 15:30 18 04/07/23 15:30 18 04/07/23 15:31 102 H 100 04/07/23 15:27 69 108/59 L 04/07/23 15:26 68 98 04/07/23 15:21 73 96 04/07/23 15:16 72 96 04/07/23 15:12 68 96/55 L 04/07/23 15:11 73 96 04/07/23 15:06 74 96 04/07/23 15:01 77 99 04/07/23 14:56 70 97 04/07/23 14:57 68 116/57 L 04/07/23 14:51 97 H 98 04/07/23 14:46 70 98 04/07/23 14:43 80 101/55 L 04/07/23 14:41 87 97 04/07/23 14:30 18 04/07/23 14:30 18 04/07/23 14:36 89 98 04/07/23 14:31 80 99 04/07/23 14:28 85 108/56 L 04/07/23 14:26 92 H 99 04/07/23 14:15 18 04/07/23 14:15 18 04/07/23 14:21 72 99 04/07/23 14:16 81 99 04/07/23 13:50 18 04/07/23 13:50 18 04/07/23 13:55 18 04/07/23 13:55 18 04/07/23 13:57 98.6 F 04/07/23 13:40 18 04/07/23 13:40 18 04/07/23 14:00 18 04/07/23 14:00 18 04/07/23 14:11 76 103/56 L 99 04/07/23 14:06 66 99 04/07/23 14:07 67 123/88 04/07/23 14:01 73 136/79 99 04/07/23 13:56 80 99 04/07/23 13:51 100 04/07/23 13:51 76 04/07/23 13:51 81 120/72 04/07/23 13:46 96 H 99 04/07/23 13:45 88 18 116/69 04/07/23 13:43 89 117/70 04/07/23 13:41 99 04/07/23 13:41 100 H 04/07/23 13:29 18 04/07/23 13:29 18 04/07/23 13:41 83 111/64 04/07/23 13:39 96 H 105/57 L 04/07/23 13:36 102 H 99 04/07/23 13:37 88 104/56 L 04/07/23 13:35 87 18 119/75 04/07/23 13:32 93 H 140/87 04/07/23 13:31 97 H 98 04/07/23 13:26 106 H 100 04/07/23 13:21 114 H 18 99 04/07/23 13:16 125 H 98 04/07/23 13:11 99 H 99 04/07/23 13:06 90 99 04/07/23 13:01 91 H 100 04/07/23 12:59 88 123/80 04/07/23 12:00 18 04/07/23 12:00 18 04/07/23 11:59 87 125/78 04/07/23 11:00 18 04/07/23 11:00 97.5 F L 18 04/07/23 11:01 82 123/81 04/07/23 10:00 18 04/07/23 10:00 18 04/07/23 10:02 81 117/80 04/07/23 09:00 18 04/07/23 09:00 18 04/07/23 07:54 18 04/07/23 07:54 97.7 F 18 04/07/23 07:49 82 123/76 Coding Level of Care Code None Diagnoses Elderly multigravida O09.529 Group beta Strep positive B95.1 HSV-2 infection B00.9
[2023-04-07] MEDS ORDERED: NURSING L&D Epidural Breakthrough Pain Update ONE (19:10)
--- NOTE | 2023-04-07 19:55 | Delivery Summary ---
Vaginal Delivery Summary Date of Service April 07, 2023 Vaginal Delivery Summary [facility] PREOPERATIVE DIAGNOSIS: 1. Single intrauterine at 40 2/7 wga 2. AMA 3. GBS+ POSTOPERATIVE DIAGNOSIS: 1. Single intrauterine at 40 2/7 wga 2. AMA 3. GBS+ 4. Delivered PROCEDURE: 1. Normal spontaneous vaginal delivery. SURGEON: Kandis Browne MD ANESTHESIA: Epidural. ESTIMATED BLOOD LOSS: 300 mL FLUIDS: Continuous LR. URINE OUTPUT: None. COMPLICATIONS: None. CONDITION: Stable. INDICATIONS: 37 yo at 40 2/7 wga presented for IOL. SSE was negative for HSV lesions. She was 2cm on arrival. Penicillin was started for GBS+ positive status. Pitocin started for induction and she received an epidural for pain control. She underwent AROM and continued to progress to complete and desired to push. FINDINGS: A viable male infant, weight pending with Apgars of 8 and 9 at 1 and 5 minutes respectively. SPECIMEN: Cord blood OPERATIVE REPORT: The patient progressed to 10 cm, 100% effaced and +2 station, pushed over intact perineum with anesthesia to deliver a viable male , weight and Apgars as above. Head of delivered in BITA position. Nuchal cord was present but could not be reduced so delivered through. Body and shoulders were delivered without difficulty. was delivered to maternal abdomen and nursing staff. Delayed cord clamping was performed for 60 seconds. Cord was clamped and cut. Cord blood was obtained. Placenta delivered spontaneously intact with 3-vessel cord. IV oxytocin and fundal massage were given for excellent hemostasis. Vagina, cervix, perineum, and placenta were inspected. A small hemostatic abrasion was noted at posterior introitus but did not need repaired. Sponge and needle counts correct x2. No sponges were left behind. Mother and stable in immediate period. [facility] Vaginal Delivery Charge Vaginal Delivery Codes: 80136 global code for the antepartum, delivery, and post- Delivery Type Details: [facility]
[2023-04-07] MEDS ORDERED: DIPHTHERIA/TETANUS/PERTUSSIS Vaccine (Tdap, Age 7+yrs) 0.5mL SYR/VL IM ONE (19:58)
[2023-04-07] MEDS ORDERED: ACETAMINOPHEN 325 MG TAB PO PRN (19:58)
[2023-04-07] MEDS ORDERED: bisacodyL 10 MG SUPP PR PRN (19:58)
[2023-04-07] MEDS ORDERED: HYDROCORTISONE ACETATE 25 MG SUPP PR PRN (19:58)
[2023-04-07] MEDS ORDERED: BENZOCAINE 20% SPRY 85 APPLN/85 GM CAN EXT PRN (19:58)
[2023-04-07] MEDS: DOCUSATE SODIUM 100 MG CAP PO SCH (20:26)
--- NOTE | 2023-04-07 20:41 | Anesthesia Procedure Note ---
Date of Service April 07, 2023 Anesthesia Post Epidural Note Vital Signs Vital Signs: Temp Pulse Resp BP Pulse Ox 98.4 F 90 18 133/69 98 04/07/23 19:45 04/07/23 20:27 04/07/23 20:30 04/07/23 20:27 04/07/23 19:41 Pain Intensity Abdomen: Pain Intensity: 4 Notes Mental Status: alert / awake / arousable and participated in evaluation Nausea / Vomiting: adequately controlled Pain: adequately controlled Airway Patency, RR, SpO2: stable & adequate BP & HR: stable & adequate Hydration State: stable & adequate Neuraxial Anesthesia: was administered and sensory block is resolving Anesthetic Complications: no major complications apparent and Pt Satisfied with anesthetic care Epidural: Removed without complications and With tip intact
[2023-04-08] MEDS: IBUPROFEN 600 MG TAB PO PRN ×3 (03:03→19:19)
--- NOTE | 2023-04-08 05:25 | Obstetrical Progress Note ---
Date of Service <Ismael Lopez DO - Last Filed: 04/08/23 06:53> April 08, 2023 Assessment & Plan <Ismael Lopez DO - Last Filed: 04/08/23 06:53> (1) (spontaneous vaginal delivery): Plan 37 y/o post day 1 s/p Pt feels well today, eating, voiding, and ambulating well Pain well controlled with Motrin Routine post care - OOB, ambulation, diet progression as tolerated After discharge, will have 6 week follow-up with Dr. Browne. Likely discharge tomorrow. <Kandis Browne MD - Last Filed: 04/08/23 07:06> (1) (spontaneous vaginal delivery): Subjective <Ismael Lopez DO - Last Filed: 04/08/23 06:53> Ambulation: ambulating normally Voiding: no voiding problems Passing Gas:: Yes (no bowel movement since delivery) Diet Tolerance:: regular diet Lochia:: Moderate Feeding Type:: breast feeding Pain controlled with Motrin Review of Systems -Denies fever or chills -Denies dyspnea, chest pain, or palpitations -Denies breast pain -Denies dysuria -Denies headache or changes in vision Physical Exam <Ismael Lopez DO - Last Filed: 04/08/23 06:53> General: Alert and oriented. No acute distress Cardiac: Regular rate and rhythm, no murmurs appreciated Respiratory: Lungs clear to auscultation bilaterally, No increased work of breat charles Abdominal: Soft, non-tender, non-distended. Bowel sounds present. Uterus: Uterine fundus firm, palpable below umbilicus Extremities: No lower extremity edema, calves non-tender bilaterally Results & Data <Ismael Lopez DO - Last Filed: 04/08/23 06:53> Vital Signs (Past 12 Hours) Vital Signs Temp Pulse Pulse Resp BP BP Pulse Ox 04/08/23 03:50 36.6 C 80 16 121/78 98 04/07/23 23:57 36.4 C L 76 16 115/73 97 04/07/23 22:02 36.3 C L 88 18 120/77 96 04/07/23 21:45 36.9 C 18 04/07/23 21:15 18 04/07/23 20:45 18 04/07/23 20:30 18 04/07/23 20:15 18 04/07/23 20:00 18 04/07/23 19:45 36.9 C 18 04/07/23 21:46 95 H 136/70 04/07/23 21:42 111 H 132/73 04/07/23 21:27 100 H 129/70 04/07/23 21:12 100 H 129/80 04/07/23 20:57 71 128/75 04/07/23 20:42 81 141/77 H 04/07/23 20:27 90 133/69 04/07/23 20:12 86 130/61 04/07/23 19:57 89 126/72 04/07/23 19:46 78 125/71 04/07/23 19:41 101 H 98 04/07/23 19:36 110 H 100 04/07/23 19:31 89 100 04/07/23 19:27 78 134/73 04/07/23 19:26 78 100 04/07/23 19:21 85 100 04/07/23 19:16 82 99 04/07/23 19:11 70 100 04/07/23 19:12 78 108/59 L 04/07/23 19:00 18 04/07/23 19:00 37.1 C 18 04/07/23 19:06 92 H 97 04/07/23 19:01 93 H 98 04/07/23 18:58 99 H 133/70 04/07/23 18:56 67 100 04/07/23 18:51 67 100 04/07/23 18:46 66 99 04/07/23 18:43 72 100/55 L 04/07/23 18:41 71 98 04/07/23 18:36 79 100 04/07/23 18:31 94 H 18 99 04/07/23 18:26 76 99 04/07/23 18:27 77 95/51 L 04/07/23 18:21 91 H 99 04/07/23 18:16 73 98 04/07/23 18:13 81 98/52 L 04/07/23 18:11 79 98 04/07/23 18:05 18 04/07/23 18:05 37.0 C 18 04/07/23 18:06 99 H 98 04/07/23 18:01 81 98 04/07/23 17:58 96 H 112/55 L 04/07/23 17:56 97 H 98 04/07/23 17:51 98 H 99 04/07/23 17:46 93 H 99 04/07/23 17:42 77 120/77 04/07/23 17:41 82 100 04/07/23 17:36 94 H 98 04/07/23 17:30 18 04/07/23 17:30 18 04/07/23 17:31 86 100 04/07/23 17:27 84 119/74 04/07/23 17:26 84 97 O2 Del Method 04/08/23 03:50 Room Air 04/07/23 23:57 Room Air 04/07/23 22:02 Room Air 04/07/23 21:45 04/07/23 21:15 04/07/23 20:45 04/07/23 20:30 04/07/23 20:15 04/07/23 20:00 04/07/23 19:45 04/07/23 21:46 04/07/23 21:42 04/07/23 21:27 04/07/23 21:12 04/07/23 20:57 04/07/23 20:42 04/07/23 20:27 04/07/23 20:12 04/07/23 19:57 04/07/23 19:46 04/07/23 19:41 04/07/23 19:36 04/07/23 19:31 04/07/23 19:27 04/07/23 19:26 04/07/23 19:21 04/07/23 19:16 04/07/23 19:11 04/07/23 19:12 04/07/23 19:00 04/07/23 19:00 04/07/23 19:06 04/07/23 19:01 04/07/23 18:58 04/07/23 18:56 04/07/23 18:51 04/07/23 18:46 04/07/23 18:43 04/07/23 18:41 04/07/23 18:36 04/07/23 18:31 04/07/23 18:26 04/07/23 18:27 04/07/23 18:21 04/07/23 18:16 04/07/23 18:13 04/07/23 18:11 04/07/23 18:05 04/07/23 18:05 04/07/23 18:06 04/07/23 18:01 04/07/23 17:58 04/07/23 17:56 04/07/23 17:51 04/07/23 17:46 04/07/23 17:42 04/07/23 17:41 04/07/23 17:36 04/07/23 17:30 04/07/23 17:30 04/07/23 17:31 04/07/23 17:27 04/07/23 17:26 <Kandis Browne MD - Last Filed: 04/08/23 07:06> Co-Signing Physician Notes Resident Physician Supervision Note: I interviewed and examined the patient. Discussed with Dr. Lopez and agree with findings and plan as documented in the note. Any exceptions or clarifications are listed here: PP1 s/p , doing well. VSS, exam benign and wnl. Continue routine pp care Documented By: Kandis Browne MD Resident Activity Tracking <Ismael Lopez DO - Last Filed: 04/08/23 06:53> Resident Involvement: Resident Care Provided Care Provided: OB Delivery
[2023-04-08] MEDS: PRENATAL VITAMIN 1 TAB PO SCH (09:51)
[2023-04-08] MEDS: DOCUSATE SODIUM 100 MG CAP PO SCH ×2 (09:52→19:20)
[2023-04-08] MEDS: FERROUS SULFATE 325 MG TAB PO SCH (09:52)
[2023-04-08] MEDS ORDERED: bisacodyL 5 MG TABEC PO SCH (20:00)
[2023-04-09] MEDS: IBUPROFEN 600 MG TAB PO PRN (02:23)
--- NOTE | 2023-04-09 05:25 | Obstetrical Progress Note ---
Date of Service <Ismael Lopez DO - Last Filed: 04/09/23 07:18> April 09, 2023 Assessment & Plan <Ismael Lopez DO - Last Filed: 04/09/23 07:18> (1) (spontaneous vaginal delivery): Plan 37 y/o post day 2 s/p Pt feels well today, eating, voiding, and ambulating well Pain well controlled with Motrin Routine post care - OOB, ambulation, diet progression as tolerated After discharge, will have 6 week follow-up with Dr. Browne. <Annabella Pendleton MD - Last Filed: 04/09/23 07:29> (1) (spontaneous vaginal delivery): Subjective <Ismael Lopez DO - Last Filed: 04/09/23 07:18> Ambulation: ambulating normally Voiding: no voiding problems Passing Gas:: Yes (no bowel movement since delivery ) Diet Tolerance:: regular diet Lochia:: Small Feeding Type:: breast feeding Pain well controlled with Motrin Review of Systems -Denies fever or chills -Denies dyspnea, chest pain, or palpitations -Denies breast pain -Denies dysuria -Denies headache or changes in vision Physical Exam <Ismael Lopez DO - Last Filed: 04/09/23 07:18> General: Alert and oriented. No acute distress Cardiac: Regular rate and rhythm, no murmurs appreciated Respiratory: Lungs clear to auscultation bilaterally, No increased work of breathing Abdominal: Soft, non-tender, non-distended. Bowel sounds present. Uterus: Uterine fundus firm, palpable below umbilicus Extremities: No lower extremity edema, calves non-tender bilaterally Results & Data <Ismael Lopez DO - Last Filed: 04/09/23 07:18> Vital Signs (Past 12 Hours) Vital Signs Temp Pulse Resp BP Pulse Ox O2 Del Method 04/09/23 00:00 36.4 C L 91 H 16 100/64 96 Room Air 04/08/23 19:15 36.5 C 88 16 118/81 97 Room Air <Annabella Pendleton MD - Last Filed: 04/09/23 07:29> Co-Signing Physician Notes Resident Physician Supervision Note: I interviewed and examined the patient. Discussed with Dr. Lopez and agree with findings and plan as documented in the note. Any exceptions or clarifications are listed here: [ ] Documented By: Annabella Pendleton MD, FACOG Resident Activity Tracking <Ismael Lopez, - Last Filed: 04/09/23 07:18> Resident Involvement: Resident Care Provided Care Provided: OB Delivery
[2023-04-09] MEDS: DOCUSATE SODIUM 100 MG CAP PO SCH (07:57)
[2023-04-09] MEDS: FERROUS SULFATE 325 MG TAB PO SCH (07:57)
[2023-04-09] MEDS: PRENATAL VITAMIN 1 TAB PO SCH (07:57)
== END 2023-04-09 14:35 | disposition home or self-care (01) | DRG 806 ==
LOC: 4S1 07:43 → 4E2 22:07